=== PATIENT | female | born 1970 | race Caucasian/White ===

== ENCOUNTER 2021-01-12 11:13 | Emergency (ER) | payer OTHER, SELFPAY ==
[2021-01-12] VITALS (16 sets, daily range): BP systolic 110–151; BP diastolic 54–85; PULSE 61–88; RESP 15–28; TEMP 36.5–36.7; O2SAT 96–100
--- NOTE | ~2021-01-12 | XR_ITS ---
EXAMINATION: XR chest 1V portable INDICATION: Shortness of breath TECHNIQUE: Portable AP chest at 1140 hours COMPARISON: 11/23/2016 FINDINGS: The lungs are free of acute opacities. There is no pleural effusion or pneumothorax. The ca rdiomediastinal silhouette is normal. The visualized bones and soft tissues are unremarkable. IMPRESSION: 1. No acute cardiopulmonary abnormality. Reviewed, dictated and finalized at location A.
--- NOTE | 2021-01-12 11:20 | ECG_ITS ---
Measurements Intervals [place] Rate: 63 P: 54 MA: 125 QRS: 70 QRSD: 86 T: 59 QT: 413 QTc: 423 Interpretive Statements SINUS RHYTHM INCOMPLETE RIGHT BUNDLE BRANCH BLOCK BASELINE ARTIFACT- V4 BORDERLINE ECG Electronically Signed On 01-12-2021 15:15:35 CDT by Jay Marshall D.O.
--- NOTE | 2021-01-12 11:20 | ED.SOB ---
HPI - SOB/Dyspnea General Chief Complaint: Shortness of Breath/Dyspnea Stated Complaint: SOB, CP- covid positive Time Seen by Provider: 01/12/21 11:20 History of Present Illness HPI Narrative: 50 yo female w/ h/o asthma presents to the ED for SOB. Began feeling sick 4 days ago. Positive COVID test yesterday. SHe reports shortness of breath all the time. Additionally she has pleuritic chest pain, cough, intermittent fever and fatigue. Related Data Home Medications Medication Instructions Recorded Confirmed omeprazole 40 mg capsule,delayed 40 mg PO DAILY 05/29/20 release Allergies Allergy/AdvReac Type Severity Reaction Status Date / Time Sulfa (Sulfonamide Allergy Mild Unknown Verified 01/12/21 11:21 Antibiotics) trimethoprim Allergy Unknown HIVES, Verified 01/12/21 11:21 RASH,ITCHEY Review of Systems Review of Systems: All systems reviewed & are unremarkable except as noted in HPI and below Constitutional: Constitutional: Reports chills, Reports fatigue and Reports fever(s) Eyes: Eyes: Reports no additional eye complaints ENT: Reports sore throat Cardiovascular: Cardiovascular: Reports chest pain and Denies radiating jaw, neck or arm pain Respiratory: Respiratory: Reports cough and Reports dyspnea Gastrointestinal: Gastrointestinal: Denies abdominal pain, Denies diarrhea, Denies nausea and Denies vomiting Genitourinary: Genitourinary: Reports no additional female genitourinary complaints Musculoskeletal: Musculoskeletal: Reports no additional musculoskeletal complaints Neurologic: Reports system reviewed and no additional complaints, except as documented Psychiatric: Psychiatric: Reports no additional psychiatric complaints [facility] Past Medical History Medical History Asthma Family History Family History Sibling Family history of thyroid disease Hypertension Family history of hypothyroidism Patient's brother is Mother Family history of ulcerative colitis Acute myocardial infarction Father Family history of diabetes mellitus in first degree relative Acute myocardial infarction Other Diabetes mellitus Family history of alcoholism Family history of cardiovascular disease Social History Social History Smoking status: Never smoker Second hand tobacco smoke exposure: No Alcohol intake: former Substance use: never Gender identity (if verbalized by the patient): Female Exam Const: General: healthy appearing, no acute distress and alert Orientation/consciousness: patient oriented x3 HENMT: Head: normal to inspection Neck: Neck: normal visual inspection and no lymphadenopathy Chest: Chest palpation & inspection: tenderness sternum Resp: Effort & Inspection: normal respiratory effort Auscultation: clear to auscultation bilaterally, no rales, no rhonchi and no wheezes Cardio: Jugular venous distension: no JVD Rate: regular rate Rhythm: regular rhythm Heart sounds: no murmurs GI: Inspection: non-distended GI Palp: Yes Soft to palpation and No Tenderness to palpation present (GI) Skin: General skin exam: normal color Neuro: General: patient oriented x3, moves all extremities, no focal motor deficits and CN's II-XI intact bilaterally Speech: normal speech Extrem: General: normal to inspection and no edema Psych: Appearance: well kempt Affect: normal affect Course Vital Signs Vital signs: Vital Signs Temperature 36.5 C 01/12/21 11:16 Pulse Rate 69 01/12/21 11:16 Respiratory Rate 28 H 01/12/21 11:16 Blood Pressure 151/84 H 01/12/21 11:16 Pulse Oximetry 100 01/12/21 11:16 Temperature 36.7 C 01/12/21 12:52 Pulse Rate 79 01/12/21 13:31 Respiratory Rate 17 01/12/21 13:31 Blood Pressure 110/73 01/12/21 13:31 Pulse Oximetry 98 0
[2021-01-12] MEDS: DEXAMETHASONE SOD PHOS INJ 4 MG/ML VIAL 10 MG IV PUSH (11:37)
[2021-01-12] MEDS: KETOROLAC 30 MG/ML VIAL (*BKC) IV PUSH (11:38)
[2021-01-12] MEDS: ALBUTEROL SULFATE NEB 2.5 MG/0.5 ML INH 5 MG INHALATION (11:40)
[2021-01-12] MEDS: IPRATROPIUM BR 0.02% INH SOLN 0.5 MG/2.5 ML VIAL INHALATION (11:40)
[2021-01-12 11:49] LABS: Basophils Percent Auto 0.5 % (0.2-1.2); Eosinophils Absolute Auto 0.1 K/mm3 (0-0.3); Eosinophils Percent Auto 3.9 % (0-4.4); Hematocrit 32.5 % (37.0-47.0); Hemoglobin 9.7 g/dL (12.0-15.0); Lymphocytes Absolute Auto 1.01 K/mm3 (0.9-3.2); Lymphocytes Percent Auto 49.5 % (18.3-44.2); Mean Corpuscular HGB Conc 29.8 g/dl (32-36); Mean Corpuscular Hemoglobin 22.2 pg (26-34); Mean Corpuscular Volume 74.4 fl (80-100); Monocytes Absolute Auto 0.3 K/mm3 (0.1-0.6); Monocytes Percent Auto 12.3 % (2.6-8.5); Neutrophils Absolute Auto 0.7 K/mm3 (1.3-6.7); Neutrophils Percent Auto 33.8 % (45.5-73.1); Platelet Count Result 216 k/mm3 (150-375); Red Blood Count 4.37 M/mm3 (4.2-5.4); Red Cell Distribution Width 18.3 % (11.5-14.5)
[2021-01-12 12:02] LABS: Anion Gap 8 mmol/L (8-16); Blood Urea Nitrogen 14 mg/dL (7-17); Calcium 8.9 mg/dL (8.4-10.2); Carbon Dioxide 23 mmol/L (22-30); Chloride 109 mmol/L (98-107); Estimated CRCL calculation 77 ml/min; Estimated Glomerular Filt Rate > 60; Glucose 117 mg/dL (65-105); Sodium 140 mmol/L (137-145)
[2021-01-12 12:10] LABS: Hypochromasia 1+ (NORMAL); Platelet Estimate Adequate (Adequate)
[2021-01-12 12:11] LABS: Anisocytosis 2+ (NORMAL); Stomatocytes 1+ (NORMAL)
== END 2021-01-12 14:36 | disposition home or self-care (01) ==
PROVIDERS: Emergency Provider Emergency Medicine; PCP Internal Medicine
DX: U07.1 COVID-19 (principal); J45.909 Unspecified asthma, uncomplicated; I45.10 Unspecified right bundle-branch block
CPT/HCPCS: 36415; 71045; 80048; 85025; 93005; 94640; 96374; 96375; 99284; J1100; J1885

== ENCOUNTER 2022-08-01 10:37 | Outpatient (CLI) | payer OTHER, SELFPAY ==
--- NOTE | ~2022-08-01 | US_ITS ---
EXAMINATION: US soft tissue head and neck DATE: 08/01/2022 11:00 INDICATION: Localized swelling, mass and lump, neck. TECHNIQUE: Multiple grayscale and Doppler ultrasound images of the head and neck were obtained. COMPARISON: None FINDINGS: There is a normal lymph node in right neck in the patient's area of concern. IMPRESSION: 1. Normal lymph node in right neck in the patient's area of concern. Reviewed, dictated and finalized at location A.
== END 2022-08-01 10:38 | disposition home or self-care (01) ==
PROVIDERS: PCP Internal Medicine; Visit Provider Internal Medicine
DX: R22.1 Localized swelling, mass and lump, neck (principal)
CPT/HCPCS: 76536

== ENCOUNTER 2022-08-19 11:21 | Emergency (ER) | payer OTHER, SELFPAY ==
--- NOTE | ~2022-08-19 | US_ITS ---
EXAMINATION: US abdomen limited DATE: 08/19/2022 12:57 INDICATION: Right upper quadrant abdominal pain. TECHNIQUE: Multiple grayscale and Doppler ultrasound images of the abdomen were obtained. COMPARISON: Ultrasound 03/22/2018 FINDINGS: The pancreas is obscured by bowel gas. There is diffuse hepatic steatosis. There is normal flow in main portal vein. The gallbladder is normal in size. No gallstones or gallbladder wall thicke erick. There is no sonographic Jamil sign. The common duct is normal and measures 5 mm. IMPRESSION: 1. Diffuse hepatic steatosis. Reviewed, dictated and finalized at location A.
--- NOTE | ~2022-08-19 | CT_ITS ---
EXAMINATION: CT abdomen pelvis w con DATE: 08/19/2022 14:07 INDICATION: epigastric and RUQ pain TECHNIQUE: Computed tomography (CT) of the abdomen and pelvis was performed with 100 mL Omnipaque-350 intravenous contrast. Automated exposure control and iterative reconstruction technique were employe d. The dose-length product was 431.26 mGy-cm. COMPARISON: 03/16/2018. FINDINGS: Lower thorax: Large hiatal hernia. Bilateral breast augmentation. Stable benign pulmonary nodules. [place] bpleural groundglass opacities likely comminution of atelectasis and early senescent/interstitial rory nge. Liver: Normal. Biliary/Gallbladder: Gallbladder is normal. No bile duct dilation. Pancreas: No mass or duct dilation. Spleen: Normal. Adrenals:No mass. Kidneys: No mass, stone, or hydronephrosis. GI tract: Esophageal wall edema. No small or large bowel dilation. Appendix not visualized. Diverticu losis without diverticulitis. Mesentery/Peritoneum: No ascites, mass, or free air. Retroperitoneum: No mass. Atherosclerotic abdominal aortic and/or arterial calcifications. Pelvis: Bladder wall thickening and inflammation. Absent uterus. Soft Tissues: Soft tissues and body wall unremarkable. Bones: No acute osseous finding. IMPRESSION: Esophagitis. Large hiatal hernia. Possible cystitis. Reviewed, dictated and finalized at location K.
[2022-08-19 11:22] VITALS: BP 166/58; PULSE 78; RESP 16; TEMP 36.2; O2SAT 100
--- NOTE | 2022-08-19 11:27 | ECG_ITS ---
Measurements Intervals [place] Rate: 69 P: 8 MI: 113 QRS: 53 QRSD: 86 T: 22 QT: 405 QTc: 435 Interpretive Statements SINUS RHYTHM WITH SHORT MI INTERVAL INCOMPLETE RIGHT BUNDLE BRANCH BLOCK BORDERLINE ECG COMPARED TO ECG 01/12/2021 11:24:12 NO SIGNIFICANT CHANGES Electronically Signed On 08-19-2022 11:47:22 CDT by Jay Marshall D.O.
[2022-08-19 11:56] LABS: Alanine Aminotransferase 34 U/L (6-35); Albumin Level 4.7 g/dL (3.5-5.1); Alkaline Phosphatase 96 U/L (38-126); Anion Gap 10 mmol/L (8-16); Aspartate Amino Transferase 38 U/L (14-36); Bilirubin,Total 0.5 mg/dL (0.2-1.3); Blood Urea Nitrogen 11 mg/dL (7-17); Carbon Dioxide 22 mmol/L (22-30); Chloride 107 mmol/L (98-107); Estimated CRCL calculation 73 ml/min; Estimated Glomerular Filt Rate > 60; Glucose 108 mg/dL (65-110); Lipase 510 U/L (23-300); Potassium 4.1 mmol/L (3.4-5.0); Sodium 139 mmol/L (137-145)
[2022-08-19 12:17] VITALS: BP 149/89; PULSE 66; RESP 16; O2SAT 100
--- NOTE | 2022-08-19 12:38 | ED.GENADULT ---
HPI - General Adult General Chief complaint: Abdominal Pain Stated complaint: epigastric pain Time Seen by Provider: 08/19/22 12:18 History of Present Illness HPI narrative: 51-year-old female presenting the emergency department for evaluation of right upper quadrant epigastric pain that has been ongoing for the last few days. Patient does report history of hiatal hernia. Patient had follow-up with her primary care physician and was instructed to have evaluation in the emergency department. Patient states symptoms have been ongoing for approximately 1 week. Patient is associated nausea and epigastric spasms. Patient does still have her gallbladder Related Data Allergies Allergy/AdvReac Type Severity Reaction Status Date / Time Sulfa (Sulfonamide Allergy Mild Unknown Verified 08/19/22 12:18 Antibiotics) trimethoprim Allergy Unknown HIVES, Verified 08/19/22 12:18 RASH,ITCHEY latex Allergy Hives Verified 08/19/22 12:18 Review of Systems Review of Systems: CONSTITUTIONAL: Denies fever, chills, or sweats. EYES: Denies visual changes, redness, or discharge. ENT: Denies rhinorrhea, congestion, sore throat, or otalgia. CARDIOVASCULAR: Denies chest pain, palpitations, or edema. RESPIRATORY: Denies cough or dyspnea. GASTROINTESTINAL: See HPI GENITOURINARY: Denies dysuria or hematuria. SKIN: Denies rash or itching. MUSCULOSKELETAL: Denies back pain, joint pain, or myalgia. NEUROLOGIC: Denies headache, numbness, or weakness. PSYCHIATRIC: Denies anxiety or depression. [facility] Past Medical History Medical History (Reviewed 08/07/22 @ 10:17 by Елена Echols [facility]) Asthma Family History Family History Sibling Family history of thyroid disease Hypertension Family history of hypothyroidism Patient's brother is Mother Family history of ulcerative colitis Acute myocardial infarction Father Family history of diabetes mellitus in first degree relative Acute myocardial infarction Other Diabetes mellitus Family history of alcoholism Family history of cardiovascular disease Social History Social History Smoking status: Never smoker Second hand tobacco smoke exposure: No Alcohol intake: former Substance use: never Has the Lack of Transportation Kept You From Medical Appointments or From Getting Medications?: No Within the Past 12 Months, Were You Worried Whether Your Food Would Run Out Before You Got Money to Buy More?: Never True What is Your Housing Situation Today?: I Have Housing Are You Worried That in the Next 2 Months, You May Not Have Your Own Housing to Live In?: No Do You Have Trouble Paying Your Heating Or Electricity Bill?: No Do You Have Trouble Paying For Medicines?: No Are You Currently Unemployed and Looking for Work?: No Highest Level of Education Completed: Associate Degree Do You Have Trouble With Childcare or the Care of a Family Member?: No Gender identity (if verbalized by the patient): Female Exam Narrative: APPEARANCE: Well appearing, no pain, no distress, well-nourished. HEAD: normocephalic, atraumatic. EYES: PERRLA/EOMI, conjunctivae clear. NOSE: Normal no drainage NECK: Supple. No adenopathy, no masses. RESPIRATORY: Epigastric and right upper quadrant tenderness to palpation CARDIOVASCULAR: Regular rate and rhythm without murmurs rubs or gallops. ABDOMINAL: Soft, nontender, nondistended, normal bowel sounds MUSCULOSKELETAL: Moves all extremities. Strength/ROM intact, No edema, No calf tenderness. NEURO: Alert. Cranial nerves II through XII intact. Good gait. Good coordination SKIN: Warm, dry. Normal Color PSYCHIATRIC: Normal affect/mood. Course Course Emergency Course: Patient does feel improved with treatment. Ultrasound showed hepatic steatosis. CT abdomen pelvis showed evidence of a large hiatal hernia with no other abnorma
[2022-08-19 12:52] LABS: Basophils Absolute Auto 0.1 K/mm3 (0.0-0.1); Basophils Percent Auto 0.9 % (0.2-1.2); Eosinophils Absolute Auto 0.1 K/mm3 (0-0.3); Eosinophils Percent Auto 2.6 % (0-4.4); Hematocrit 28.5 % (37.0-47.0); Hemoglobin 8.3 g/dL (12.0-15.0); Immature Granulocyte Absolute 0.02 K/mm3 (0.00-0.031); Immature Granulocyte Percent A 0.4 % (0-0.5); Lymphocytes Absolute Auto 1.26 K/mm3 (0.9-3.2); Lymphocytes Percent Auto 23.5 % (18.3-44.2); Mean Corpuscular HGB Conc 29.1 g/dl (32-36); Mean Corpuscular Hemoglobin 23.9 pg (26-34); Mean Corpuscular Volume 82.1 fl (80-100); Mean Platelet Volume 10.6 fl (7.4-10.4); Monocytes Absolute Auto 0.4 K/mm3 (0.1-0.6); Monocytes Percent Auto 6.7 % (2.6-8.5); Neutrophils Absolute Auto 3.5 K/mm3 (1.3-6.7); Neutrophils Percent Auto 65.9 % (45.5-73.1); Platelet Count Result 223 k/mm3 (150-375); Red Blood Count 3.47 M/mm3 (4.2-5.4); Red Cell Distribution Width 15.9 % (11.5-14.5); White Blood Count 5.4 K/mm3 (4.5-10.0)
[2022-08-19] MEDS: BELLADONNA ALK/PHENOB ELIX 10 ML, MAG HYDROX/ALUMINUM HYD/SIMETH 30 ML, LIDOCAINE HCL 2... PO (12:55)
[2022-08-19 13:06] VITALS: PULSE 65; RESP 19; O2SAT 97
[2022-08-19 13:06] LABS: Anisocytosis 1+ (NORMAL); Hypochromasia 1+ (NORMAL); Large Platelets Present; Platelet Estimate Adequate (Adequate); Schistocytes None Seen (NORMAL)
[2022-08-19 13:10] LABS: Appearance Urine Clear (Clear); Bilirubin Urine 1+ (Negative); Blood Urine Negative (Negative); Color Urine Yellow (Yellow); Glucose Urine UA Negative (Negative); Ketones Urine Negative (Negative); Leukocyte Esterase Ur Negative LEU/UL (Negative); Nitrate Urine Negative (Negative); Protein Urine Negative (Negative); Specific Grav Ur 1.025 (1.001-1.035); Urobilinogen Urine 0.2 mg/dL (<2.0)
[2022-08-19 13:14] LABS: Mucus Urine Few /lpf; Squamous Epithelial Cell Urine Many /hpf (Few)
[2022-08-19 13:22] LABS: Add Urine Microscopic? YES
[2022-08-19] MEDS: HYDROmorphone HCL INJ (*CRX) 1 MG/ML SYR 0.5 MG IV PUSH (13:52)
[2022-08-19] MEDS: ONDANSETRON INJ 4 MG/2 ML VIAL IV PUSH (13:52)
--- NOTE | 2022-08-19 13:52 | PC.NURSE ---
Pt to CT scan via stretcher at this time.
[2022-08-19 14:24] VITALS: BP 132/86; PULSE 68; RESP 12; O2SAT 100
[2022-08-19 15:18] VITALS: BP 137/80; PULSE 72; RESP 14; O2SAT 97
== END 2022-08-19 15:30 | disposition home or self-care (01) ==
PROVIDERS: Emergency Provider Emergency Medicine; PCP Internal Medicine
DX: R10.11 Right upper quadrant pain (principal); J45.909 Unspecified asthma, uncomplicated; K76.0 Fatty (change of) liver, not elsewhere classified; K44.9 Diaphragmatic hernia without obstruction or gangrene
CPT/HCPCS: 36415; 74177; 76705; 80053; 81001; 83690; 85025; 87086; 93005; 96374; 96375; 99284; A9270; J1170; J2405; Q9967

== ENCOUNTER 2022-09-10 06:21 | Day surgery (SDC) | payer OTHER, SELFPAY ==
[2022-08-29 13:23] VITALS: BMI 27.1
[2022-08-29 14:07] VITALS: BMI 27.1
[2022-09-10] VITALS (9 sets, daily range): BP systolic 123–158; BP diastolic 76–98; PULSE 76–82; RESP 14–18; TEMP 36–36.7; O2SAT 97–100
--- NOTE | 2022-09-10 06:47 | WPDANESEPPF ---
Anes - Initial Pre Proc Eval Procedure: Operation Date: 09/10/22 08:15 Proposed Procedures p Open Incarcerated Ventral Hernia Repair with Mesh - Luis Enrique Blue DO Date/Time: 09/10/22 06:47 Surgeon: Luis Enrique Blue DO Pre Op Diagnosis: Incarcerated Ventral Hernia Patient Data Age: 51 Gender: F Height: 1.66 m Weight: 75 kg Allergies Allergy/AdvReac Type Severity Reaction Status Date / Time Sulfa (Sulfonamide Allergy Mild Hives Verified 08/29/22 13:55 Antibiotics) trimethoprim Allergy Unknown HIVES, Verified 08/29/22 13:55 RASH,ITCHEY latex Allergy Hives Verified 08/29/22 13:55 Home Medications Medication Instructions Recorded Confirmed Type albuterol sulfate 90 mcg/actuation 2 puff inhalation Q4-6H PRN 04/11/20 08/29/22 Rx aerosol inhaler (ProAir HFA) shortness of breath or wheezing #8.5 grams sodium,potassium,mag sulfates 17.5 See Rx Instructions PO .COMPLEX 08/12/22 08/29/22 Rx gram-3.13 gram-1.6 gram oral soln #354 mL (Suprep Bowel Prep Kit) omeprazole 40 mg capsule,delayed 40 mg PO DAILY #90 caps 08/15/22 08/29/22 Rx release sertraline 50 mg tablet 50 mg PO DAILY #90 tabs 08/15/22 08/29/22 Rx hydrocodone 5 mg-acetaminophen 325 1 tablet PO Q8H PRN pain #10 tabs 08/19/22 08/29/22 Rx mg tablet ondansetron 4 mg disintegrating 4 mg PO Q8H PRN nausea and 08/19/22 08/29/22 Rx tablet vomiting #14 tabs tramadol 50 mg tablet 50 mg PO Q6H PRN pain #30 tabs 08/26/22 08/29/22 Rx Patient hx anesthesia problems: none Family hx anesthesia problems: none Results Review: All pre-operative results and documents have been reviewed as part of the pre-operative evaluation. [facility] Past Medical History Medical History Asthma Surgical History Surgical History H/O laparoscopy H/O shoulder surgery H/O: hysterectomy Hx of appendectomy Hx of breast implants, bilateral Family History Family History Sibling Family history of thyroid disease Hypertension Family history of hypothyroidism Patient's brother is Mother Family history of ulcerative colitis Acute myocardial infarction Diabetes mellitus Father Family history of diabetes mellitus in first degree relative Acute myocardial infarction Diabetes mellitus Other Family history of alcoholism Family history of cardiovascular disease Social History Social History Smoking status: Never smoker Second hand tobacco smoke exposure: No Alcohol intake: current Substance use: never Lack of Transportation: No Lack of Food: Never True Current Housing: I Have Housing Concerned About Future Housing: No Difficulty Paying Gas/Electric Bills: No Difficulty Paying for Meds: No Currently Unemployed: No Education: Associate Degree Difficulty w/ Childcare or Family Care: No Additional occupation/education comments: Law Enforcement Gender identity (if verbalized by the patient): Female Anes - Eval Final PreProcedure Day of Procedure 09/10/22 06:47 Patient weight: obese Heart: regular rate and rhythm Lungs: clear to auscultation Airway: Mallampati scale class II Neurological: alert and oriented Last oral intake: >/= 8 hours ASA classification: II Emergent: no Anesthetic plan: proceed Anesthesia type and monitoring: general ETT and standard monitoring Results Review: All pre-operative results and documents have been reviewed as part of the pre-operative evaluation. Informed Consent: The patient's anesthetic plan and its attendant risks and benefits were discussed with the patient/family/POA. Questions were solicited and answers provided to the satisfaction of the patient/family/POA.
[2022-09-10] MEDS: ACETAMINOPHEN 500 MG TABLET 1000 MG PO (07:05)
[2022-09-10] MEDS: LACTATED RINGERS 1,000 ML 30 ML IV CONT (07:32)
--- NOTE | 2022-09-10 08:06 | WPDHPUPDATE1 ---
History and Physical Update Update Date/Time: 09/10/22 08:06 History and Physical has been reviewed, including an updated exam of the patient. There are NO changes in the patient's condition. Risks, benefits, and alternatives have been discussed and questions answered. Patient agrees to proceed with procedure.
[2022-09-10] MEDS: ceFAZolin SODIUM 2 GM/20 ML SW SYRINGE IV PUSH (08:26)
[2022-09-10] MEDS: BUPIVACAINE/EPINEPHRINE 0.5% 10 ML VIAL 20 ML INFILTRATE (08:46)
--- NOTE | 2022-09-10 09:16 | W.PM.PROC2 ---
Procedure Note - Detailed Date of Procedure 09/10/22 Pre-op Diagnosis Incarcerated Ventral Hernia Post-op Diagnosis Same Procedure Performed Open incarcerated ventral hernia repair with 6.[address] hernia patch Surgeon Luis Enrique Blue, DO Anesthesia General and Local (0.5% bupivacaine with epinephrine) Indications this is a 51-year-old woman who presented with epigastric pain that started on 08/19/2022. She has been to 2 different ERs complaining of worsening constant pain with nausea. She had a CT at [facility] which showed a large hiatal hernia and esophagitis as well as an epigastric abdominal hernia. She then went to [facility] Emergency Department and again a CT was obtained which was essentially unchanged. She was not having significantly worse pain with eating and was frequently having pain even 1st thing in the morning. She had significant tenderness in the upper midline abdominal region where the hernia was. An incarcerated ventral hernia was identified on exam. Discussions were made with the patient about treatment options and decision was made to proceed with open incarcerated ventral hernia repair with possible mesh. Findings Open incarcerated ventral hernia repair was performed. The patient was found to have a ventral hernia in the upper midline about 5 cm inferior to the xiphoid that was incarcerated with fat. The hernia sac was excised and sent to the lab for pathology. The hernia defect measured about 2 cm. This was repaired using a 6.[address] hernia patch. Description of Procedure Procedure as well as risks, benefits, and alternatives were discussed with the patient. Written consent was obtained and placed in chart prior to procedure. Patient was brought back to surgical suite. She was placed supine on operating table. She was then intubated by Anesthesia Department. Her abdomen was prepped and draped in sterile fashion using chlorhexidine prep. 0.5% bupivacaine with epinephrine was infiltrated locally around the operative area. A 5 cm transverse incision was made in the upper abdomen using a 15 blade scalpel. Electrocautery was used for hemostasis and for dissection down through the subcutaneous fat. Hernia sac was encountered and this was carefully freed up from surrounding subcutaneous fat using electrocautery. The hernia sac was freed up all the way down to the level of the fascia, and then it was transected using electrocautery. The hernia sac was sent to the lab for pathology. The hernia defect was then measured. This was measuring approximately 20 mm. The decision was made to use a 6.[address] hernia patch. The peritoneum was cleared under the fascia circumferentially around the hernia using blunt dissection and electrocautery. Once a wide enough pocket was created for the mesh, the mesh was then placed within this preperitoneal pocket and laid out flat centered on the hernia defect. The mesh appeared to be sitting in proper position. The edges of the mesh were secured to the abdominal wall with the fascial closure using 0 Ethibond [id number] sutures. A total of 3 sutures were placed transversely to close the hernia. The repair was inspected and appeared secure. 0.5% bupivacaine with epinephrine was infiltrated around the fascia and subcutaneous space. The umbilical stalk was then reapproximated to the fascia using a 3 0 Vicryl simple interrupted suture. The deep dermis was reapproximated using 3 0 Vicryl simple interrupted sutures, and then the skin was approximated using 4 Monocryl running subcuticular suture. Exofin glue was then applied on top. The patient was then awakened from anesthesia, extubated, and transferred to recovery. Implants 6.[address] hernia patch Estimated Blood Loss 5 Pathology Yes ( hernia sac) Complications No immediate complications Condition Stable Disposition Same day [facility] Billing Surgery - Charge Forward: Surgery Billing
[2022-09-10] MEDS: fentaNYL CITRATE INJ (*CRX) 100 MCG/2 ML VIAL 25 MCG IV PUSH ×3 (09:57→10:31)
--- NOTE | 2022-09-10 10:13 | SUR.PHASEI ---
PT AWAKE AND ALERT. TALKATIVE. STATES PAIN IMPROVED /. STATES SHE IS READY FOR PO DRINK.
[2022-09-10] MEDS: oxyCODONE HCL (*CRX) 2.5 MG TAB IR PO (10:43)
--- NOTE | 2022-09-10 10:56 | SUR.PHASEII ---
Pt asked pain level after receiving 25mcg of fentanyl ivp- stated that the discomfort comes in spasms ranging from 4 to 12- patient at this time is sleeping comfortable on stretcher- no signs of distress on face
--- NOTE | 2022-09-10 13:20 | WPDANESPN ---
Anes - Prog Note Post-Op Date/Time: 09/10/22 13:20 Cardiovascular status: normal Respiratory status: normal Airway patency: baseline Mental status: baseline Post-Op hydration status: normal Vital Signs: Last Vital Signs Temp 36.0 C L 09/10/22 09:24 Pulse 80 09/10/22 11:04 Resp 15 09/10/22 11:04 BP 141/93 H 09/10/22 11:04 Pulse Ox 97 09/10/22 10:05 O2 Del Method Room Air 09/10/22 10:05 O2 Flow Rate 6 09/10/22 09:35 Pain Score (VAS): 2 I/O: Intake & Output 09/09/22 09/10/22 09/10/22 23:59 07:59 15:59 Intake Total 150 Balance 150 Post-procedural complaints: none Patient Feedback: Patient satisfied with anesthetic care. Other Findings: Patient vital signs back to baseline. Patient denies nausea and vomiting. Patient's pain under control. Patient OK for discharge.
== END 2022-09-10 11:28 | disposition home or self-care (01) ==
PROVIDERS: Visit Provider Surgery
PROC: 0WQF0ZZ Repair Abdominal Wall, Open Approach (ICD-10-PCS; CPT 49561; principal; 2022-09-10 08:15)
DX: K43.6 Other and unspecified ventral hernia with obstruction, without gangrene (principal)
CPT/HCPCS: 49561; 49568

== ENCOUNTER 2022-09-10 08:00 | Outpatient (NON) | payer OTHER, SELFPAY | END 2022-09-10 08:01 | disposition home or self-care (01) | LOC: ANHLAB 09-15 08:16 | PROVIDERS: Visit Provider Surgery | DX: K43.6 Other and unspecified ventral hernia with obstruction, without gangrene (principal) | CPT/HCPCS: 88302 ==

== ENCOUNTER 2022-10-06 07:00 | Outpatient (NON) | payer OTHER, SELFPAY | END 2022-10-06 07:01 | disposition home or self-care (01) | PROVIDERS: Visit Provider Internal Medicine Gastroenterology | DX: R10.9 Unspecified abdominal pain (principal) | CPT/HCPCS: 88305 ==

== ENCOUNTER 2022-10-06 08:24 | Day surgery (SDC) | payer OTHER, SELFPAY ==
[2022-10-06 09:23] VITALS: BP 144/78; PULSE 72; RESP 16; TEMP 36.8; O2SAT 99; BMI 28.0
--- NOTE | 2022-10-06 09:33 | WPDANESEPPF ---
Anes - Initial Pre Proc Eval Procedure: Operation Date: 10/06/22 10:30 Proposed Procedures p Esophagogastroduodenoscopy - Luis Freeman MD s Diagnostic Colonoscopy - Luis Freeman MD Date/Time: 10/06/22 09:33 Surgeon: Luis Freeman MD Pre Op Diagnosis: Iron Deficient Anemia Patient Data Age: 51 Gender: F Height: 1.65 m Weight: 75 kg Last Vital Signs Temp 36.8 C 10/06/22 09:23 Pulse 72 10/06/22 09:23 Resp 16 10/06/22 09:23 BP 144/78 H 10/06/22 09:23 Pulse Ox 99 10/06/22 09:23 O2 Del Method Room Air 10/06/22 09:23 Allergies Allergy/AdvReac Type Severity Reaction Status Date / Time Sulfa (Sulfonamide Allergy Mild Hives Verified 10/06/22 09:29 Antibiotics) trimethoprim Allergy Unknown HIVES, Verified 10/06/22 09:29 RASH,ITCHEY latex Allergy Hives Verified 10/06/22 09:29 Home Medications Medication Instructions Recorded Confirmed Type albuterol sulfate 90 mcg/actuation 2 puff inhalation Q4-6H PRN 04/11/20 09/26/22 Rx aerosol inhaler (ProAir HFA) shortness of breath or wheezing #8.5 grams sodium,potassium,mag sulfates 17.5 See Rx Instructions PO .COMPLEX 08/12/22 09/26/22 Rx gram-3.13 gram-1.6 gram oral soln #354 mL (Suprep Bowel Prep Kit) omeprazole 40 mg capsule,delayed 40 mg PO DAILY #90 caps 08/15/22 09/26/22 Rx release sertraline 50 mg tablet 50 mg PO DAILY #90 tabs 08/15/22 09/26/22 Rx ondansetron 4 mg disintegrating 4 mg PO Q8H PRN nausea and 08/19/22 09/26/22 Rx tablet vomiting #14 tabs tramadol 50 mg tablet 50 mg PO Q12H PRN pain #30 tabs 09/19/22 09/26/22 Rx Patient hx anesthesia problems: none Family hx anesthesia problems: none Results Review: All pre-operative results and documents have been reviewed as part of the pre-operative evaluation. [facility] Past Medical History Medical History Asthma Surgical History Surgical History H/O laparoscopy H/O shoulder surgery H/O: hysterectomy History of incisional hernia repair Open ventral incisional hernia repair w/ mesh on 09/10/22. Hx of appendectomy Hx of breast implants, bilateral Family History Family History Sibling Family history of thyroid disease Hypertension Family history of hypothyroidism Patient's brother is Mother Family history of ulcerative colitis Acute myocardial infarction Diabetes mellitus Father Family history of diabetes mellitus in first degree relative Acute myocardial infarction Diabetes mellitus Other Family history of alcoholism Family history of cardiovascular disease Social History Social History Smoking status: Never smoker Second hand tobacco smoke exposure: No Alcohol intake: current Substance use: never Substance use type: does not use Lack of Transportation: No Lack of Food: Never True Current Housing: I Have Housing Concerned About Future Housing: No Difficulty Paying Gas/Electric Bills: No Difficulty Paying for Meds: No Currently Unemployed: No Education: Associate Degree Difficulty w/ Childcare or Family Care: No Living arrangements: 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
[2022-10-06] MEDS: LACTATED RINGERS 1,000 ML 150 ML IV CONT (10:19)
--- NOTE | 2022-10-06 10:40 | PM.HPGS ---
History of Present Illness History of Present Illness Consent: Risks, benefits, and alternatives have been discussed and questions answered. Patient agrees to proceed with procedure. Chief complaint: Iron Deficient Anemia Narrative: Georgina Cardenas is a 51 year old female Referred for colonoscopy an EGD. Patient reports that she was found to have iron deficiency anemia on routine exam performed at time of ER visit. Patient was scheduled for elective colonoscopy an EGD to evaluate anemia. She denies any obvious blood loss. She has not had stool hemoccults performed. She does have a ventral hernia which became incarcerated underwent surgical therapy under the direction of Dr. Nunez. Patient subsequently had her dog jumped on her abdomen she continues to have abdominal pain is there is concerned over recurrent herniation. Patient was told many years ago she had a hiatal hernia. She does have heartburn well controlled with omeprazole 40mg p.o. daily. Patient referred for both colonoscopy an EGD. Review of Systems Review of Systems: Review of systems noncontributory. [facility], [facility] Past Medical History Medical History Asthma Surgical History Surgical History H/O laparoscopy H/O shoulder surgery H/O: hysterectomy History of incisional hernia repair Open ventral incisional hernia repair w/ mesh on 09/10/22. Hx of appendectomy Hx of breast implants, bilateral Family History Family History Sibling Family history of thyroid disease Hypertension Family history of hypothyroidism Patient's brother is Mother Family history of ulcerative colitis Acute myocardial infarction Diabetes mellitus Father Family history of diabetes mellitus in first degree relative Acute myocardial infarction Diabetes mellitus Other Family history of alcoholism Family history of cardiovascular disease Social History Social History Smoking status: Never smoker Second hand tobacco smoke exposure: No Alcohol intake: current Substance use: never Substance use type: does not use Lack of Transportation: No Lack of Food: Never True Current Housing: I Have Housing Concerned About Future Housing: No Difficulty Paying Gas/Electric Bills: No Difficulty Paying for Meds: No Currently Unemployed: No Education: Associate Degree Difficulty w/ Childcare or Family Care: No Living arrangements: with 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 Gender identity (if verbalized by the patient): Female Spiritual care concerns: No Meds Home Medications and Allergies Home Medications Medication Instructions Recorded Confirmed Type albuterol sulfate 90 mcg/actuation 2 puff inhalation Q4-6H PRN 04/11/20 09/26/22 Rx aerosol inhaler (ProAir HFA) shortness of breath or wheezing #8.5 grams sodium,potassium,mag sulfates 17.5 See Rx Instructions PO .COMPLEX 08/12/22 09/26/22 Rx gram-3.13 gram-1.6 gram oral soln #354 mL (Suprep Bowel Prep Kit) omeprazole 40 mg capsule,delayed 40 mg PO DAILY #90 caps 08/15/22 09/26/22 Rx release sertraline 50 mg tablet 50 mg PO DAILY #90 tabs 08/15/22 09/26/22 Rx ondansetron 4 mg disintegrating 4 mg PO Q8H PRN nausea and 08/19/22 09/26/22 Rx tablet vomiting #14 tabs tramadol 50 mg tablet 50 mg PO Q12H PRN pain #30 tabs 09/19/22 09/26/22 Rx Allergies Allergy/AdvReac Type Severity Reaction Status Date / Time Sulfa (Sulfonamide Allergy Mild Hives Verified 10/06/22 09:29 Antibiotics) trimethoprim Allergy Unknown HIVES, Verified 10/06/22 09:29 RASH,ITCHEY latex Allergy Hives Verified 10/06/22 09:29 Vital Signs Vital Signs - 24 hr 10/06/22 09:23 Temperature 98.3 F Pulse Rate 72 Respiratory Ra
[2022-10-06 11:10] VITALS: BP 124/86; PULSE 70; RESP 16; O2SAT 99
[2022-10-06 11:20] VITALS: BP 135/55; PULSE 65; RESP 16; O2SAT 100
[2022-10-06 11:30] VITALS: BP 147/78; PULSE 59; RESP 18; O2SAT 98
--- NOTE | 2022-10-06 11:47 | WPDANESPN ---
Anes - Prog Note Post-Op Date/Time: 10/06/22 11:47 Cardiovascular status: normal Respiratory status: normal Airway patency: baseline Mental status: baseline Post-Op hydration status: normal Vital Signs: Last Vital Signs Temp 36.8 C 10/06/22 09:23 Pulse 59 L 10/06/22 11:30 Resp 18 10/06/22 11:30 BP 147/78 H 10/06/22 11:30 Pulse Ox 98 10/06/22 11:30 O2 Del Method Room Air 10/06/22 11:30 Pain Score (VAS): 0/10 I/O: Intake & Output 10/05/22 10/06/22 10/06/22 23:59 07:59 15:59 Intake Total 500 Balance 500 Patient Feedback: Patient satisfied with anesthetic care.
== END 2022-10-06 11:48 | disposition home or self-care (01) ==
PROVIDERS: PCP Internal Medicine; Visit Provider Internal Medicine Gastroenterology
PROC: 0DJ08ZZ Inspection of Upper Intestinal Tract, Via Natural or Artificial Opening Endoscopic (ICD-10-PCS; CPT 43235; principal; 2022-10-06 10:30)
PROC: 0DJD8ZZ Inspection of Lower Intestinal Tract, Via Natural or Artificial Opening Endoscopic (ICD-10-PCS; CPT 45378; 2022-10-06 10:30)
DX: K21.9 Gastro-esophageal reflux disease without esophagitis (principal)
CPT/HCPCS: 43239

== ENCOUNTER → 2022-10-30 13:32 | Outpatient (CLI) | payer OTHER, SELFPAY ==
--- NOTE | ~2022-10-30 | CT_ITS ---
EXAMINATION: CT abdomen wo con DATE: 10/30/2022 13:47 INDICATION: Follow-up of ventral hernia TECHNIQUE: Computed tomography (CT) of the abdomen was performed without intravenous contrast. Automa olaf exposure control and iterative reconstruction technique were employed. Exam dose: 538.03 mGy-cm total exam DLP. COMPARISON: 08/19/2022 CT abdomen pelvis FINDINGS: Small focal area of infiltrate or atelectasis in the posterior medial right lower lobe. The lung bases are otherwise clear of infiltrate or consolidation. Probable small calcified pulmonary granulomas at the lung bases. Normal heart size. No pericardial or pleural effusion. Status post bilateral augmentation mammoplasty. Large sliding hiatal hernia. The liver, gallbladder, bile ducts, spleen, pancreas, pancreatic duct and adrenal glands and kidneys are unremarkable on this limited noncontrast examination. No urinary tract calculus or hydroureterone phrosis is evident. Normal caliber and minimal calcification of the abdominal aorta and iliac arteries. No abdominal aort ic aneurysm. No intraperitoneal or retroperitoneal mass lesion or lymphadenopathy. There are scattered diverticula of the descending colon; no CT evidence of diverticulitis. There is evidence of successful mesh repair of the upper anterior abdominal wall hernia since 08/19/20 22. Small fat-containing umbilical hernia. No suspicious osteolytic or osteoblastic lesions. IMPRESSION: Successful surgical mesh repair of upper ventral abdominal wall hernia Diverticulosis of left colon; no evidence of diverticulitis Large sliding hiatal hernia Status post bilateral augmentation mammoplasty Reviewed, dictated and finalized at [facility] Reviewed, dictated and finalized at [facility]. RVISOR REFINING IMPRESSION: Successful surgical mesh repair of upper ventral abdominal wall he rnia Diverticulosis of left colon; no evidence of diverticulitis Large sliding hiatal hernia Status post bilateral augmentation mammoplasty
== END ==
PROVIDERS: PCP Internal Medicine; Visit Provider Surgery
DX: K43.6 Other and unspecified ventral hernia with obstruction, without gangrene (principal); K57.30 Diverticulosis of large intestine without perforation or abscess without bleeding; K44.9 Diaphragmatic hernia without obstruction or gangrene; Z98.890 Other specified postprocedural states
CPT/HCPCS: 74150

== ENCOUNTER → 2022-12-10 08:13 | Outpatient (CLI) | payer OTHER, SELFPAY ==
--- NOTE | ~2022-12-10 | MMUS_ITS ---
EXAMINATION: MM diag samantha implant BI w brennan, US breast BI complete HISTORY: Right breast lump TECHNIQUE: ML, MLO and CC implant displaced 3-D tomosynthesis images of both breasts were performed a nd synthetic 2-D images were generated. Bilateral implant ML, MLO and CC views. CAD analysis was subm itted and interpreted. High resolution complete bilateral breast ultrasound examination including all 4 quadrants and subareolar areas was performed. COMPARISON: 06/07/2018 bilateral diagnostic mammography and bilateral complete breast ultrasound exami nation 05/21/2018 bilateral screening mammogram BREAST PARENCHYMAL COMPOSITION: The breasts are heterogeneously dense, which may obscure small masses . FINDINGS: MAMMOGRAPHIC FINDINGS: Status post bilateral augmentation mammoplasty. No suspicious mass or architectural distortion, malig nant calcification, skin thickening or retraction or significant new or developing density is detecte d. ULTRASOUND: No suspicious mass or shadowing of either breast is detected. No cyst is identified. No other signifi cant sonographic finding. IMPRESSION: 1. No mammographic evidence of malignancy 2. Routine annual mammographic screening is recommended BI-RADS Category 1: Negative Reviewed, dictated and finalized at [facility]. ICAL PSYCHOLOGIST LICENSED IMPRESSION: 1. No mammographic evidence of malignancy 2. Routine annual mammographic screening is recommended BI-RADS Category 1: Negative
== END ==
PROVIDERS: PCP Internal Medicine; Visit Provider Obstetrics & Gynecology
DX: N63.10 Unspecified lump in the right breast, unspecified quadrant (principal)
CPT/HCPCS: 76641; 77062; 77066; G0279

== ENCOUNTER 2023-03-06 13:12 | Outpatient (CLI) | payer OTHER, SELFPAY ==
--- NOTE | ~2023-03-06 | XR_ITS ---
EXAMINATION: XR chest 2V DATE: 03/06/2023 13:22 INDICATION: Cough. TECHNIQUE: Frontal and lateral views of the chest were obtained. COMPARISON: Chest single view 01/12/2021, CT abdomen 10/30/22 FINDINGS: There is no pneumonia, pleural effusion, or pneumothorax. The heart size is normal. There i s a moderate-sized hiatal hernia. IMPRESSION: 1. Moderate-sized hiatal hernia. Reviewed, dictated and finalized at [facility].
== END 2023-03-06 13:13 | disposition home or self-care (01) ==
LOC: ANHIMG 13:14
PROVIDERS: PCP Internal Medicine; Visit Provider Internal Medicine
DX: R05.9 Cough, unspecified (principal); K44.9 Diaphragmatic hernia without obstruction or gangrene
CPT/HCPCS: 71046

== ENCOUNTER 2023-03-18 16:29 | Outpatient (CLI) | payer OTHER, SELFPAY ==
--- NOTE | ~2023-03-18 | CT_ITS ---
CT Scan of the Chest without Contrast: Clinical Indication: Hiatal hernia, dysphasia Technique: Contiguous sections were acquired throughout the chest without intravenous contrast. Dose reduction technique was used on this scan by utilizing automated exposure control and iterative recon struction technique. The dose-length product (DLP) was 210.19 mGy-cm. Findings: There is no evidence of any significant mediastinal, hilar or axillary lymphadenopathy. No aortic ane urysm. Large hiatal hernia is present, containing the gastric fundus and upper gastric body. There is no evidence of pleural or pericardial effusion. The lungs are clear. No pulmonary nodules or infiltrates are noted. Images through the upper abdomen reveal no other abnormalities. Impression: Large hiatal hernia, as detailed above. Reviewed, dictated and finalized at location . Impression: Large hiatal hernia, as detailed above.
== END 2023-03-18 16:30 | disposition home or self-care (01) ==
PROVIDERS: PCP Internal Medicine; Visit Provider Internal Medicine
DX: K44.9 Diaphragmatic hernia without obstruction or gangrene (principal); R13.10 Dysphagia, unspecified
CPT/HCPCS: 71250

== ENCOUNTER 2023-03-26 08:40 | Day surgery (SDC) | payer OTHER, SELFPAY ==
[2023-03-18 13:50] VITALS: BMI 26.6
--- NOTE | 2023-03-25 11:57 | WPDANESEPPF ---
Anes - Initial Pre Proc Eval Procedure: Operation Date: 03/26/23 10:30 Proposed Procedures p Esophagogastroduodenoscopy - Luis Freeman MD <Jan José MD - Last Filed: 03/25/23 11:58> Date/Time: 03/25/23 11:57 <Jan José MD - Last Filed: 03/25/23 11:58> Surgeon: Luis Freeman MD <Jan José MD - Last Filed: 03/25/23 11:58> Pre Op Diagnosis: Chronic Cough,Diaphragmatic Hernia w/o Obstruction <Jan José MD - Last Filed: 03/25/23 11:58> Patient Data Age: 52 Gender: F Height: 1.68 m Weight: 75 kg <Jan José MD - Last Filed: 03/25/23 11:58> Allergies Allergy/AdvReac Type Severity Reaction Status Date / Time Sulfa (Sulfonamide Allergy Mild Hives Verified 03/26/23 09:25 Antibiotics) trimethoprim Allergy Unknown HIVES, Verified 03/26/23 09:25 RASH,ITCHEY latex Allergy Hives Verified 03/26/23 09:25 <Jan José MD - Last Filed: 03/25/23 11:58> Home Medications Medication Instructions Recorded Confirmed Type omeprazole 40 mg capsule,delayed 40 mg PO DAILY #90 caps 02/18/23 03/26/23 Rx release sertraline 50 mg tablet 50 mg PO DAILY #90 tabs 02/18/23 03/26/23 Rx albuterol sulfate 90 mcg/actuation 2 puff inhalation Q4-6H PRN 03/18/23 03/26/23 Rx aerosol inhaler (ProAir HFA) shortness of breath or wheezing #8.5 grams fluticasone 250 mcg-salmeterol 50 1 inh inhalation BID #60 ea 03/18/23 03/26/23 Rx mcg/dose blistr powdr for inhalation (Advair Diskus) <Jan José MD - Last Filed: 03/25/23 11:58> Patient hx anesthesia problems: none <Matt Briceño MD - Last Filed: 03/26/23 09:43> Family hx anesthesia problems: none <Matt Briceño MD - Last Filed: 03/26/23 09:43> Results Review: All pre-operative results and documents have been reviewed as part of the pre-operative evaluation. <Jan José MD - Last Filed: 03/25/23 11:58> [facility] Past Medical History Medical History: Medical History Anemia Asthma Overweight (BMI 25.0-29.9) Paraesophageal hernia <Jan José MD - Last Filed: 03/25/23 11:58> Surgical History Surgical History: Surgical History H/O laparoscopy H/O shoulder surgery H/O: hysterectomy History of incisional hernia repair Open ventral incisional hernia repair w/ mesh on 09/10/22. Hx of appendectomy Hx of breast implants, bilateral <Jan José MD - Last Filed: 03/25/23 11:58> Family History Family History: Family History Sibling Family history of thyroid disease Hypertension Family history of hypothyroidism Patient's brother is Mother Family history of ulcerative colitis Acute myocardial infarction Diabetes mellitus Father Family history of diabetes mellitus in first degree relative Acute myocardial infarction Diabetes mellitus Other Family history of alcoholism Family history of cardiovascular disease <Jan José MD - Last Filed: 03/25/23 11:58> Social History Social History: Social History Smoking status: Never smoker Second hand tobacco smoke exposure: No Alcohol intake: current Alcohol use details: daily Substance use: never Substance use type: does not use Lack of Transportation: No Lack of Food: Never True Current Housing: I Have Housing Concerned About Future Housing: No Difficulty Paying Gas/Electric Bills: No Difficulty Paying for Meds: No Currently Unemployed: No Education: Associate Degree Difficulty w/ Childcare or Family Care: No Living arrangements: with family 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
[2023-03-26 09:27] VITALS: BP 141/78; PULSE 68; RESP 16; TEMP 36.6; O2SAT 100
[2023-03-26] MEDS: LACTATED RINGERS 1,000 ML 150 ML IV CONT (09:41)
--- NOTE | 2023-03-26 09:42 | WPDANESEPPF ---
Anes - Initial Pre Proc Eval Procedure: Operation Date: 03/26/23 10:30 Proposed Procedures p Esophagogastroduodenoscopy - Luis Freeman MD Date/Time: 03/26/23 09:42 Surgeon: Luis Freeman MD Pre Op Diagnosis: Chronic Cough,Diaphragmatic Hernia w/o Obstruction Patient Data Age: 52 Gender: F Height: 1.68 m Weight: 75.1 kg Last Vital Signs Temp 36.6 C 03/26/23 09:27 Pulse 68 03/26/23 09:27 Resp 16 03/26/23 09:27 BP 141/78 H 03/26/23 09:27 Pulse Ox 100 03/26/23 09:27 O2 Del Method Room Air 03/26/23 09:27 Allergies Allergy/AdvReac Type Severity Reaction Status Date / Time Sulfa (Sulfonamide Allergy Mild Hives Verified 03/26/23 09:25 Antibiotics) trimethoprim Allergy Unknown HIVES, Verified 03/26/23 09:25 RASH,ITCHEY latex Allergy Hives Verified 03/26/23 09:25 Home Medications Medication Instructions Recorded Confirmed Type omeprazole 40 mg capsule,delayed 40 mg PO DAILY #90 caps 02/18/23 03/26/23 Rx release sertraline 50 mg tablet 50 mg PO DAILY #90 tabs 02/18/23 03/26/23 Rx albuterol sulfate 90 mcg/actuation 2 puff inhalation Q4-6H PRN 03/18/23 03/26/23 Rx aerosol inhaler (ProAir HFA) shortness of breath or wheezing #8.5 grams fluticasone 250 mcg-salmeterol 50 1 inh inhalation BID #60 ea 03/18/23 03/26/23 Rx mcg/dose blistr powdr for inhalation (Advair Diskus) Patient hx anesthesia problems: none Family hx anesthesia problems: none Results Review: All pre-operative results and documents have been reviewed as part of the pre-operative evaluation. [facility] Past Medical History Medical History Anemia Asthma Overweight (BMI 25.0-29.9) Paraesophageal hernia Surgical History Surgical History H/O laparoscopy H/O shoulder surgery H/O: hysterectomy History of incisional hernia repair Open ventral incisional hernia repair w/ mesh on 09/10/22. Hx of appendectomy Hx of breast implants, bilateral Family History Family History Sibling Family history of thyroid disease Hypertension Family history of hypothyroidism Patient's brother is Mother Family history of ulcerative colitis Acute myocardial infarction Diabetes mellitus Father Family history of diabetes mellitus in first degree relative Acute myocardial infarction Diabetes mellitus Other Family history of alcoholism Family history of cardiovascular disease Social History Social History Smoking status: Never smoker Second hand tobacco smoke exposure: No Alcohol intake: current Alcohol use details: daily Substance use: never Substance use type: does not use Lack of Transportation: No Lack of Food: Never True Current Housing: I Have Housing Concerned About Future Housing: No Difficulty Paying Gas/Electric Bills: No Difficulty Paying for Meds: No Currently Unemployed: No Education: Associate Degree Difficulty w/ Childcare or Family Care: No Living arrangements: with family 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 Informed Consent: The patient's anesthetic plan and its attendan
--- NOTE | 2023-03-26 09:54 | PM.HPGS ---
History of Present Illness History of Present Illness Consent: Risks, benefits, and alternatives have been discussed and questions answered. Patient agrees to proceed with procedure. Chief complaint: Chronic Cough,Diaphragmatic Hernia w/o Obstruction Narrative: Georgina Cardenas is a 52 year old female Presents for EGD. Patient reports a distant history of heartburn. She has been maintained on omeprazole 40mg p.o. daily and has not had heartburn for years. Patient reports that she has a chronic cough. Occasionally will vomit after coughing. Recent chest x-ray has suggested hiatal hernia and for this reason EGD is now reuested. Patient denies any dysphagia or weight loss. She has had no bleeding. She does notice occasional emesis. As stated EGD is requested will be performed. Review of Systems Review of Systems: Review of systems noncontributory. [facility] Past Medical History Medical History Anemia Asthma Overweight (BMI 25.0-29.9) Paraesophageal hernia Surgical History Surgical History H/O laparoscopy H/O shoulder surgery H/O: hysterectomy History of incisional hernia repair Open ventral incisional hernia repair w/ mesh on 09/10/22. Hx of appendectomy Hx of breast implants, bilateral Family History Family History Sibling Family history of thyroid disease Hypertension Family history of hypothyroidism Patient's brother is Mother Family history of ulcerative colitis Acute myocardial infarction Diabetes mellitus Father Family history of diabetes mellitus in first degree relative Acute myocardial infarction Diabetes mellitus Other Family history of alcoholism Family history of cardiovascular disease Social History Social History Smoking status: Never smoker Second hand tobacco smoke exposure: No Alcohol intake: current Alcohol use details: daily Substance use: never Substance use type: does not use Lack of Transportation: No Lack of Food: Never True Current Housing: I Have Housing Concerned About Future Housing: No Difficulty Paying Gas/Electric Bills: No Difficulty Paying for Meds: No Currently Unemployed: No Education: Associate Degree Difficulty w/ Childcare or Family Care: No Living arrangements: with family 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emale Spiritual care concerns: No Meds Home Medications and Allergies Home Medications Medication Instructions Recorded Confirmed Type omeprazole 40 mg capsule,delayed 40 mg PO DAILY #90 caps 02/18/23 03/26/23 Rx release sertraline 50 mg tablet 50 mg PO DAILY #90 tabs 02/18/23 03/26/23 Rx albuterol sulfate 90 mcg/actuation 2 puff inhalation Q4-6H PRN 03/18/23 03/26/23 Rx aerosol inhaler (ProAir HFA) shortness of breath or wheezing #8.5 grams fluticasone 250 mcg-salmeterol 50 1 inh inhalation BID #60 ea 03/18/23 03/26/23 Rx mcg/dose blistr powdr for inhalation (Advair Diskus) Allergies Allergy/AdvReac Type Severity Reaction Status Date / Time Sulfa (Sulfonamide Allergy Mild Hives Verified 03/26/23 09:25 Antibiotics) trimethoprim Allergy Unknown HIVES, Verified 03/26/23 09:25 RASH,ITCHEY latex Allergy Hives Verified 03/26/23 09:25 Vital Signs Vital Signs - 24 hr 03/26/23 09:27 Temperature 97.9 F Pulse Rate 68 Respiratory Rate 16 Blood Pressure 141/78 H Pulse Oximetry 100 Oxygen Delivery Room Air Exam Narrative: Physical exam reveals patient to be alert. Vital signs stable. HEENT exam is unremarkable. Patient is anicteric. Lungs are clear to auscultation and percussion. Heart is without murmur or extra
[2023-03-26 10:33] VITALS: BP 106/91; PULSE 71; RESP 18; O2SAT 100
--- NOTE | 2023-03-26 10:41 | WPDANESPN ---
Anes - Prog Note Post-Op Date/Time: 03/26/23 10:41 Cardiovascular status: normal Respiratory status: normal Airway patency: baseline Mental status: baseline Post-Op hydration status: normal Vital Signs: Last Vital Signs Temp 36.6 C 03/26/23 09:27 Pulse 71 03/26/23 10:33 Resp 18 03/26/23 10:33 BP 106/91 H 03/26/23 10:33 Pulse Ox 100 03/26/23 10:33 O2 Del Method Room Air 03/26/23 10:33 Pain Score (VAS): 0/10 I/O: Intake & Output 03/25/23 03/26/23 03/26/23 23:59 07:59 15:59 Intake Total 300 Balance 300 Patient Feedback: Patient satisfied with anesthetic care.
[2023-03-26 10:43] VITALS: BP 124/71; PULSE 64; RESP 18; O2SAT 100
== END 2023-03-26 11:00 | disposition home or self-care (01) ==
PROVIDERS: PCP Internal Medicine; Visit Provider Internal Medicine Gastroenterology
PROC: 0DJ08ZZ Inspection of Upper Intestinal Tract, Via Natural or Artificial Opening Endoscopic (ICD-10-PCS; CPT 43235; principal; 2023-03-26 10:30)
DX: K44.9 Diaphragmatic hernia without obstruction or gangrene (principal)
CPT/HCPCS: 43239

== ENCOUNTER 2023-07-02 14:01 | Outpatient (CLI) | payer OTHER, SELFPAY | END 2023-07-02 14:02 | disposition home or self-care (01) | PROVIDERS: PCP Internal Medicine; Visit Provider Surgery | DX: K44.9 Diaphragmatic hernia without obstruction or gangrene (principal); Z01.818 Encounter for other preprocedural examination | CPT/HCPCS: 36415; 86850; 86900; 86901 ==

== ENCOUNTER 2023-07-09 11:12 | Observation (INO) | payer OTHER, SELFPAY ==
[2023-07-02 11:07] VITALS: BMI 27.0
--- NOTE | 2023-07-02 11:11 | PC.NURSE ---
Report to the Outpatient Waiting Room, entrance under the green pavilion located off [facility], at time 10:00 on date 07/08/23. Planned Procedure Time: 12:00. Time changes happen often and if your time is changed the preop area will call you the afternoon before. - You and your visitor will be asked to self-screen and do not enter if you have any COVID symptoms. - A mask is optional within the hospital at this time. Patients may have clear liquids (water, carbonated beverages, clear teas, apple juice) until 3 hours prior to surgery with a maximum of 20 ounces. - No food from midnight until time of surgery Take the following medications with a SIP of water the morning of surgery: SERTRALINE, INHALER IF NEEDED DO NOT STOP ANY OF YOUR OTHER PRESCRIPTION MEDICATIONS PRIOR TO SURGERY ?EXCEPT THE FOLLOWING Medications to discontinue per physician: N/A Date to take last dose: N/A Please no make-up, nail guamanian, hairspray, perfume, deodorant, or body powder the day of surgery. No jewelry (including any body piercings) or valuables the day of surgery, leave them at home. Please take a shower or bath the night before, or the morning of, surgery with an antibacterial soap (HIBICLENS). Wear comfortable, loose fitting clothing. - Jewelry must be removed prior to entering the operating room. Rings and piercings that are not removed may be cut off. - The hospital will not accept responsibility for valuables. - Please leave all valuables, including medications, at home the day of surgery. If you are going home after surgery, a licensed delivery motorcycle driver must drive you home. - NO public transportation without another adult if you receive anesthesia. - We recommend that an adult stay with you for 24 hours following discharge. - We also recommend that you do not drive, make important decision, drink alcoholic beverages, or take any drugs that were not prescribed by your health care provider for at least 24 hours after your discharge time. Follow any additional instructions given to you from your surgeon. If you or anyone in your household have experienced Covid symptoms in the past week, please notify your surgeon or the nurse liaison at the phone number below for possible testing. Telephone instructions given to PT - MAGUE RAMIREZ and asked if any additional questions and then verbalized understanding. Patient advised to call surgeon office or pre surgery nurse liaison [phone] if any additional questions.
[2023-07-08] VITALS (8 sets, daily range): BP systolic 136–146; BP diastolic 72–90; PULSE 82–98; RESP 14–18; TEMP 35.9–36.9; O2SAT 95–100; BMI 27.8
[2023-07-08] MEDS: LACTATED RINGERS 1,000 ML 30 ML IV CONT ×2 (10:20→15:56)
[2023-07-08] MEDS: ACETAMINOPHEN 500 MG TABLET 1000 MG PO ×3 (10:24→23:50)
[2023-07-08] MEDS: KETOROLAC 15 MG/ML VIAL (*BKC) IV PUSH (10:24)
--- NOTE | 2023-07-08 10:59 | WPDANESEPPF ---
Anes - Initial Pre Proc Eval Procedure: Operation Date: 07/08/23 12:00 Proposed Procedures p Laparoscopic Hiatal Hernia Repair, Davinci Assisted - Luis Enrique Blue DO Date/Time: 07/08/23 10:59 Surgeon: Luis Enrique Blue DO Pre Op Diagnosis: paraesophageal hernia Patient Data Age: 52 Gender: F Height: 1.66 m Weight: 76.9 kg Last Vital Signs Temp 36.3 C L 07/08/23 10:08 Pulse 82 07/08/23 10:08 Resp 16 07/08/23 10:08 BP 146/78 H 07/08/23 10:08 Pulse Ox 99 07/08/23 10:08 O2 Del Method Room Air 07/08/23 10:08 Allergies Allergy/AdvReac Type Severity Reaction Status Date / Time Sulfa (Sulfonamide Allergy Mild Hives Verified 07/08/23 10:43 Antibiotics) trimethoprim Allergy Unknown HIVES, Verified 07/08/23 10:43 RASH,ITCHEY latex Allergy Hives Verified 07/08/23 10:43 Home Medications Medication Instructions Recorded Confirmed Type omeprazole 40 mg capsule,delayed 40 mg PO DAILY #90 caps 02/18/23 07/08/23 Rx release sertraline 50 mg tablet 50 mg PO DAILY #90 tabs 02/18/23 07/08/23 Rx albuterol sulfate 90 mcg/actuation 2 puff inhalation Q4-6H PRN 03/18/23 07/08/23 Rx aerosol inhaler (ProAir HFA) shortness of breath or wheezing #8.5 grams Patient hx anesthesia problems: none Family hx anesthesia problems: none Results Review: All pre-operative results and documents have been reviewed as part of the pre-operative evaluation. [facility] Past Medical History Medical History Anemia Asthma Overweight (BMI 25.0-29.9) Paraesophageal hernia Surgical History Surgical History H/O laparoscopy H/O shoulder surgery H/O: hysterectomy History of incisional hernia repair Open ventral incisional hernia repair w/ mesh on 09/10/22. Hx of appendectomy Hx of breast implants, bilateral Family History Family History Sibling Family history of thyroid disease Hypertension Family history of hypothyroidism Patient's brother is Mother Family history of ulcerative colitis Acute myocardial infarction Diabetes mellitus Father Family history of diabetes mellitus in first degree relative Acute myocardial infarction Diabetes mellitus Liver cancer Other Family history of alcoholism Family history of cardiovascular disease Social History Social History Smoking status: Never smoker Second hand tobacco smoke exposure: No Alcohol intake: current Drinks per week: 7 Alcohol use details: 1 GLASS RED WINE PER NIGHT Substance use: never Substance use type: does not use Lack of Transportation: No Lack of Food: Never True Current Housing: I Have Housing Concerned About Future Housing: No Difficulty Paying Gas/Electric Bills: No Difficulty Paying for Meds: No Currently Unemployed: No Education: Associate Degree Difficulty w/ Childcare or Family Care: No Living arrangements: with family 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 Informed Consent: The patient's anesthetic plan and its attendant risks and benefits were discussed with the patient/family/POA. Questions were solici
--- NOTE | 2023-07-08 12:36 | WPDHPUPDATE1 ---
History and Physical Update Update Date/Time: 07/08/23 12:36 History and Physical has been reviewed, including an updated exam of the patient. There are NO changes in the patient's condition. Risks, benefits, and alternatives have been discussed and questions answered. Patient agrees to proceed with procedure.
[2023-07-08] MEDS: ceFAZolin 2 GM/D5W 50 ML 2 GM/50 ML BAG IVPB (12:57)
[2023-07-08] MEDS: BUPIVACAINE/EPINEPHRINE 0.5% 30 ML VIAL INFILTRATE (13:59)
--- NOTE | 2023-07-08 15:54 | W.PM.PROC2 ---
Procedure Note - Detailed Date of Procedure 07/08/23 Pre-op Diagnosis paraesophageal hernia Post-op Diagnosis Same Procedure Performed Robotic assisted laparoscopic paraesophageal hernia repair with 270 degree fundoplication Surgeon Luis Enrique Blue, DO Anesthesia General and Local (0.5% bupivicaine with epi) Indications This is a 52-year-old woman who presented with refractory GERD and a symptomatic hiatal hernia. She has a previous history EGD which showed a large hiatal hernia. She has also had multiple CTs which have demonstrated a large hiatal hernia containing the upper portion of her stomach. She underwent esophageal manometry which showed normal esophageal peristalsis. She could not tolerate stopping the PPI long enough to undergo esophageal pH testing. Discussions were made with the patient about treatment options and decision was made to proceed with robotic assisted laparoscopic paraesophageal hernia repair with fundoplication. Findings Laparoscopic paraesophageal hernia repair was performed. The patient was found to have a large paraesophageal hernia containing the upper portion of the stomach. The hernia sac and stomach were reduced from within the mediastinum and the esophageal attachments were taken down enough to allow for adequate length within the abdominal cavity. The hernia sac was excised and sent to the lab for pathology. The hiatal hernia repair was performed using 2 0 V lock permanent running suture. I then chose to perform a 270 degree toupee fundoplication. No other intra-abdominal abnormalities were noted. Description of Procedure Procedure as well as risks, benefits, and alternatives were discussed with the patient. Written consent was obtained and placed in chart prior to procedure. Patient was brought back to surgical suite. She was placed supine on operating table. Time-out was done to confirm patient and procedure. She was then intubated by the anesthesia department. Her abdomen was prepped and draped in sterile fashion using chlorhexidine prep. 0.5% bupivacaine with epinephrine was infiltrated locally around each area for port placement. An 8 mm incision was made in the left upper quadrant 2 cm inferior to the costal margin in the mid clavicular line. A 5 mm Optiview trocar was then advanced through the abdominal layers under direct visualization. Once inside the abdominal cavity, carbon dioxide insufflation was used to create a pneumoperitoneum. The camera was inserted in the abdomen was inspected. No immediate abnormalities were identified. Another 8 mm camera port was placed about 15 cm inferior to the xiphoid just to the left of midline under direct visualization. An 8 mm port was placed in the anterior axillary line on the left upper quadrant at about the same transverse plane as the camera port. An 8 mm port was placed in the right upper quadrant and another 8 mm AirSeal assist port was placed in right lower quadrant just to the right of the umbilicus. A 5 mm incision was made in the subxiphoid region and the Rey liver retractor was inserted through this incision into the abdominal cavity to lift up the left lobe of the liver. This was secured in place to the bed of the table. The patient was then placed in 30? reverse Trendelenburg. The robotic arms were secured to the ports and the robotic camera and instruments were inserted. A force bipolar grasper was placed in the right upper quadrant port. The vessel sealer was placed in the midclavicular left upper quadrant port and a Cadiere grasper was placed in the anterior axillary line left upper quadrant port. I then moved over to the robotic console took control of the camera and instruments. A careful thorough exam was performed throughout the abdomen. The stomach was then reduced from within the hiatal hernia. The gastrohepatic ligament was taken down medially using the vessel sealer to identify the right juanita. Peritoneum along the medial side
[2023-07-08] MEDS: fentaNYL CITRATE INJ (*CRX) 100 MCG/2 ML VIAL 25 MCG IV PUSH ×8 (16:11→16:40)
--- NOTE | 2023-07-08 17:08 | ADMGEN ---
This patient, Georgina Cardenas, was admitted to Medical Room 348-01. Patient/family oriented to hospital policies and general routines including ID bracelet, bed and alarms, visiting hours, pain management, procedures, bathroom and other care routines, personal items, smoking policy, room service/diet, and visiting hours. Information on how to activate the Rapid Response Team has been discussed. Patient/Family are encouraged to report perceived risks to care and to ask questions if they do not understand what they are told or what they should do.
[2023-07-08] MEDS: oxyCODONE HCL (*CRX) 2.5 MG TAB IR PO (17:17)
[2023-07-08] MEDS: ONDANSETRON INJ 4 MG/2 ML VIAL IV PUSH (18:18)
[2023-07-08] MEDS: MORPHINE SULFATE (*CRX) 4 MG/ML INJ IV PUSH (19:54)
[2023-07-09] VITALS (16 sets, daily range): BP systolic 122–149; BP diastolic 68–88; PULSE 67–88; RESP 14–18; TEMP 36.1–37; O2SAT 95–100
--- NOTE | ~2023-07-09 | CT_ITS ---
EXAMINATION: CT abdomen wo/w con DATE: 07/09/2023 23:47 INDICATION: Upper abdominal pain, swelling TECHNIQUE: Computed tomography (CT) of the abdomen was performed without and subsequently with 100 CC Omnipaque 350 intravenous contrast. Automated exposure control and iterative reconstruction techniqu e were employed. Exam dose: 1237.86 mGy-cm total exam DLP. COMPARISON: 10/30/2022 CT abdomen. FINDINGS: Status post bilateral augmentation mammoplasty. Bibasilar infiltrate and discoid atelectasis, primarily involving the lower lobes and lingula. Pneumomediastinum. No pneumothorax is evident. There is mild subcutaneous emphysema of the left and right anterior abdominal wall. Pneumomediastinum is noted along the distal esophagus in addition to fluid surrounding the distal eso phagus and esophagogastric area. There is soft tissue thickening at the wall of the gastric fundus. U pper gastric mass lesion must be considered. Distal esophageal proximal gastric perforation is sugges olaf. Small left pleural effusion. Diffuse hepatic steatosis. No hepatic, splenic, pancreatic, and adrenal or renal space-occupying mass lesion is evident. Normal caliber of the abdominal aorta. No intraperitoneal or retroperitoneal adenopathy is noted. IMPRESSION: Prominent soft tissue thickening at the gastric fundus and fluid surrounding the distal esophagus and proximal stomach, with mild left pleural effusion. There is pneumomediastinum, suggesti ng hollow viscus rupture in the absence of evidence of pneumothorax. Gastric neoplasm with perforation must be considered. Infiltrate and/atelectasis at the lung bases, particularly involving the lower lobes Hepatic steatosis Reviewed, dictated and finalized at [facility]. Reviewed, dictated and finalized at [facility]. IMPRESSION: Prominent soft tissue thickening at the gastric fundus and fluid s urrounding the distal esophagus and proximal stomach, with mild left pleural ef fusion. There is pneumomediastinum, suggesting hollow viscus rupture in the abs ence of evidence of pneumothorax. Gastric neoplasm with perforation must be considered. Infiltrate and/atelectasis at the lung bases, particularly involving the lower lobes Hepatic steatosis
--- NOTE | ~2023-07-09 | XR_ITS ---
EXAMINATION: XR esophogram water soluble DATE: 07/10/2023 10:01 INDICATION: Vomiting post hiatal hernia repair TECHNIQUE: The patient drank water-soluble contrast. Fluoroscopic spot radiographs of the hypopharynx and esophagus were obtained. A total of 559 images were recorded. Fluoroscopy exposure time was 1.0 minutes. COMPARISON: None. FINDINGS: The esophagus are normal without mass or stricture. Esophageal motility is normal. There is no hiatal hernia. Abnormal contour to the gastric cardia consistent with a likely Erin fundoplicat ion. No significant stricture at the site of the wrap with lumen measuring up to 9 x 6 mm in orthogon al diameter and with no delay of passage of contrast from the esophagus into the stomach. Stomach chelsi ears otherwise unremarkable with similar rapid passage of contrast into the small bowel. The duodenum and visualized proximal loops of jejunum appear normal. No gastroesophageal reflux observed however the stomach is not fully distended and provocative maneuvers for not performed due to the recent surg elaine. IMPRESSION: 1. No significant stricture at the site of a likely Erin fundoplication. Reviewed, dictated and finalized at location A.
[2023-07-09] MEDS: ACETAMINOPHEN 500 MG TABLET 1000 MG PO ×4 (05:24→22:57)
[2023-07-09 05:56] LABS: Hematocrit 22.1 % (37.0-47.0); Mean Corpuscular HGB Conc 26.7 g/dl (32-36); Mean Corpuscular Hemoglobin 18.8 pg (26-34); Mean Corpuscular Volume 70.6 fl (80-100); Mean Platelet Volume 10.8 fl (7.4-10.4); Platelet Count Result 202 k/mm3 (150-375); Red Blood Count 3.13 M/mm3 (4.2-5.4); Red Cell Distribution Width 18.6 % (11.5-14.5)
[2023-07-09 06:11] LABS: Hemoglobin 5.9 g/dL (12.0-15.0)
[2023-07-09 06:15] LABS: Anion Gap 7 mmol/L (8-16); Blood Urea Nitrogen 12 mg/dL (7-17); Calcium 9.1 mg/dL (8.4-10.2); Carbon Dioxide 26 mmol/L (22-30); Chloride 102 mmol/L (98-107); Estimated CRCL calculation 83 ml/min; Estimated Glomerular Filt Rate > 60; Glucose 105 mg/dL (65-110); Potassium 4.2 mmol/L (3.4-5.0); Sodium 135 mmol/L (137-145)
--- NOTE | 2023-07-09 06:34 | PC.NURSE ---
RN received critical lab results for Hgb. Information was relayed to MD thru lithopone charger and instructions were given to companion.
[2023-07-09] MEDS: SERTRALINE HCL 50 MG TABLET PO (08:46)
--- NOTE | 2023-07-09 08:53 | WPDANESPN ---
Anes - Prog Note Post-Op Date/Time: 07/09/23 08:53 Cardiovascular status: normal Respiratory status: normal Airway patency: baseline Mental status: baseline Post-Op hydration status: normal Vital Signs: Last Vital Signs Temp 36.1 C L 07/09/23 06:00 Pulse 72 07/09/23 06:00 Resp 18 07/09/23 06:00 BP 129/68 07/09/23 06:00 Pulse Ox 100 07/09/23 06:00 O2 Del Method Room Air 07/08/23 16:45 O2 Flow Rate 8 07/08/23 16:10 Pain Score (VAS): 10 I/O: Intake & Output 07/08/23 07/09/23 07/09/23 23:59 07:59 15:59 Intake Total 540 340 Balance 540 340 Laboratory Tests 07/09/23 05:37 07/09/23 05:37 07/09/23 05:37 WBC 7.0 RBC 3.13 L Hgb 5.9 L* Hct 22.1 L MCV 70.6 L MCH 18.8 L MCHC 26.7 L RDW 18.6 H Plt Count 202 MPV 10.8 H Sodium 135 L Potassium 4.2 Chloride 102 Carbon Dioxide 26 Anion Gap 7 L BUN 12 Creatinine 0.70 Estim Creat Clear Calc 83 Estimated GFR > 60 Glucose 105 Calcium 9.1 Post-procedural complaints: none Patient Feedback: Patient satisfied with anesthetic care.
[2023-07-09 09:09] LABS: Hematocrit 21.9 % (37.0-47.0)
[2023-07-09 09:11] LABS: Hemoglobin 5.8 g/dL (12.0-15.0)
[2023-07-09] MEDS: SODIUM CHLORIDE 0.9% IV 250 ML 30 ML IV CONT (11:25)
--- NOTE | 2023-07-09 13:41 | PM.PNGS ---
Progress Note: A&P Assessment and Plan (1) Paraesophageal hernia: Code(s): K44.9 - Diaphragmatic hernia without obstruction or gangrene Status: Acute Assessment and Plan: Doing well on postop day 1. Vitals remain stable. Her morning labs showed a hemoglobin of 5.9. She does not appear to have any signs of acute blood loss that would explain this. Patient does have some chronic anemia but has not had her labs redrawn recently. Will transfuse 2 units packed red blood cells today. Will also check iron studies. Might need to consult hospitalist or senior product consultant for further workup. (2) Anemia: Qualifiers: Anemia type: iron deficiency Iron deficiency anemia type: unspecified iron deficiency Qualified Code(s): D50.9 - Iron deficiency anemia, unspecified Code(s): D64.9 - Anemia, unspecified Status: Acute Subjective Subjective Date/Time Seen: 07/09/23 13:41 Interval history: Patient feeling well this morning. Tolerating clear liquids. Pain controlled. Denies any lightheadedness. Patient denies any blood in her stool. She denies any hematemesis. She denies any vaginal bleeding. Exam GI: Inspection: non-distended and incision (Intact with glue) GI Palp: Yes Soft to palpation, Yes Tenderness to palpation present (GI) (Incisional) and No Guarding due to palpation present (GI) Objective Data Vital Signs Vital Signs: Vital Signs - 24 hr 07/08/23 15:56 07/08/23 16:10 07/08/23 16:25 Temperature 36.6 C 36.4 C L Pulse Rate 98 91 87 Respiratory Rate 16 18 14 Blood Pressure 140/76 143/78 H 137/72 Pulse Oximetry 100 100 95 Oxygen Delivery Simple Face Mask Simple Face Mask Room Air Oxygen Flow Rate 8 8 07/08/23 16:40 07/08/23 16:45 07/08/23 18:35 Temperature 36.9 C Pulse Rate 90 93 91 Respiratory Rate 16 14 16 Blood Pressure 136/79 138/73 140/76 Pulse Oximetry 96 95 98 Oxygen Delivery Room Air Room Air Oxygen Flow Rate 07/08/23 20:00 07/09/23 00:00 07/09/23 06:00 Temperature 35.9 C L 36.1 C L 36.1 C L Pulse Rate 89 88 72 Respiratory Rate 14 14 18 Blood Pressure 138/90 126/73 129/68 Pulse Oximetry 98 98 100 Oxygen Delivery Oxygen Flow Rate 07/09/23 08:00 07/09/23 11:23 07/09/23 11:30 Temperature 36.6 C 36.6 C Pulse Rate 73 73 Respiratory Rate 16 16 Blood Pressure 149/83 H 149/83 H Pulse Oximetry 98 98 Oxygen Delivery Room Air Oxygen Flow Rate 07/09/23 11:46 07/09/23 12:05 07/09/23 13:05 Temperature 36.6 C 36.7 C 37.0 C Pulse Rate 73 69 73 Respiratory Rate 16 16 16 Blood Pressure 149/83 H 122/75 146/80 H Pulse Oximetry 98 97 100 Oxygen Delivery Oxygen Flow Rate Intake/Output Intake/Output: Intake & Output 07/06/23 07/07/23 07/08/23 07/09/23 23:59 23:59 23:59 23:59 Intake Total 540 580 Balance 540 580 Meds/Results Medications: Active Medications Generic Name Dose Route Start Last Admin Trade Name Freq PRN Reason Stop Dose Admin Acetaminophen 1,000 mg 07/08/23 16:50 07/09/23 10:44 Acetaminophen 500 Mg Tablet PO 1,000 mg Q6H ROBERTO Administration Albuterol 2 puff 07/08/23 16:50 Albuterol Sulfate (*Sp) Aerosol 1 Puff INHALATION Q4-6H PRN shortness of breath or wheezing Enoxaparin Sodium 40 mg 07/09/23 09:00 07/09/23 11:24 Enoxaparin 40 Mg/0.4 Ml Syringe SUB-Q Not Given DAILY ROBERTO Sodium Chloride 250 mls @ 30 mls/hr 07/09/23 09:40 07/09/23 11:25 Normal Saline Iv IV CONT 07/09/23 17:59 30 mls/hr .Q8H20M STA Administration Morphine Sulfate 2 mg 07/08/23 16:50 Morphine Sulfate (*Crx) 2 Mg/Ml Inj IV PUSH Q2H PRN Pain Rated 4-6 Morphine Sulfate 4 mg 07/08/23 16:50 07/08/23 19:54 Morphine Sulfate (*Crx) 4 Mg/Ml Inj IV PUSH 4 mg Q2H PRN Administration Pain Rated 7-10 Ondansetron HCl 4 mg 07/08/23 16:50 09/20/23 18:18 Ondansetron Inj 4 Mg/2 Ml Vial IV PUSH 4 mg Q4H PRN Administration Nausea And Vomiting Oxy
[2023-07-09] MEDS: MORPHINE SULFATE (*CRX) 2 MG/ML INJ IV PUSH ×2 (14:07→18:00)
[2023-07-09] MEDS: ONDANSETRON INJ 4 MG/2 ML VIAL IV PUSH (17:57)
[2023-07-09 20:04] LABS: Hematocrit 28.5 % (37.0-47.0); Hemoglobin 8.3 g/dL (12.0-15.0)
--- NOTE | 2023-07-09 21:37 | PM.IMHP ---
H&P: HPI History of Present Illness Date/Time: 07/09/23 21:37 Chief Complaint: Post-Op Narrative: 52 y/o F presented here for laproscopic hiatal hernia repair (07/08) [facility] Past Medical History Medical History Anemia Asthma Overweight (BMI 25.0-29.9) Paraesophageal hernia Surgical History Surgical History H/O laparoscopy H/O shoulder surgery H/O: hysterectomy History of incisional hernia repair Open ventral incisional hernia repair w/ mesh on 09/10/22. Hx of appendectomy Hx of breast implants, bilateral Family History Family History Sibling Family history of thyroid disease Hypertension Family history of hypothyroidism Patient's brother is Mother Family history of ulcerative colitis Acute myocardial infarction Diabetes mellitus Father Family history of diabetes mellitus in first degree relative Acute myocardial infarction Diabetes mellitus Liver cancer Other Family history of alcoholism Family history of cardiovascular disease Social History Social History Smoking status: Never smoker Second hand tobacco smoke exposure: No Alcohol intake: current Drinks per week: 7 Alcohol use details: 1 GLASS RED WINE PER NIGHT Substance use: never Substance use type: does not use Lack of Transportation: No Lack of Food: Never True Current Housing: I Have Housing Concerned About Future Housing: No Difficulty Paying Gas/Electric Bills: No Difficulty Paying for Meds: No Currently Unemployed: No Education: Associate Degree Difficulty w/ Childcare or Family Care: No Living arrangements: with family 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emale Spiritual care concerns: No Meds Home Medications and Allergies Home Medications Medication Instructions Recorded Confirmed Type omeprazole 40 mg capsule,delayed 40 mg PO DAILY #90 caps 02/18/23 07/08/23 Rx release sertraline 50 mg tablet 50 mg PO DAILY #90 tabs 02/18/23 07/08/23 Rx albuterol sulfate 90 mcg/actuation 2 puff inhalation Q4-6H PRN 03/18/23 07/08/23 Rx aerosol inhaler (ProAir HFA) shortness of breath or wheezing #8.5 grams Allergies Allergy/AdvReac Type Severity Reaction Status Date / Time Sulfa (Sulfonamide Allergy Mild Hives Verified 07/08/23 10:43 Antibiotics) trimethoprim Allergy Unknown HIVES, Verified 07/08/23 10:43 RASH,ITCHEY latex Allergy Hives Verified 07/08/23 10:43 Vital Signs Vital Signs - 24 hr 07/09/23 00:00 07/09/23 06:00 07/09/23 08:00 Temperature 96.9 F L 97 F L Pulse Rate 88 72 Respiratory Rate 14 18 Blood Pressure 126/73 129/68 Pulse Oximetry 98 100 Oxygen Delivery Room Air 07/09/23 11:23 07/09/23 11:30 07/09/23 11:46 Temperature 97.9 F 97.9 F 97.9 F Pulse Rate 73 73 73 Respiratory Rate 16 16 16 Blood Pressure 149/83 H 149/83 H 149/83 H Pulse Oximetry 98 98 98 Oxygen Delivery 07/09/23 12:05 07/09/23 13:05 07/09/23 14:05 Temperature 98.1 F 98.6 F 98.5 F Pulse Rate 69 73 84 Respiratory Rate 16 16 18 Blood Pressure 122/75 146/80 H 145/75 H Pulse Oximetry 97 100 98 Oxygen Delivery 07/09/23 14:50 07/09/23 15:15 07/09/23 16:19 Temperature 98.2 F 98.2 F 98.2 F Pulse Rate 71 68 73 Respiratory Rate 18 18 18 Blood Pressure 124/78 131/76 132/71 Pulse Oximetry 98 98 95 Oxygen Delivery 07/09/23 16:15 07/09/23 17:11 07/09/23 17:12 Temperature 98.2 F 98.4 F 98.4 F Pulse Rate 73 72 72 Respiratory Rate 18 16 16 Blood Pressure 132/71 144/80 H 144/80 H Pulse Oximetry 95 95 98 Oxygen Delivery 07/09/23 17:15 07/09/23 20:42 Temperature 98.5 F 97.5 F L Pulse Rate 67 67 Respiratory Ra
--- NOTE | 2023-07-09 21:44 | WPDCN ---
Assessment and Plan Assessment and plan (1) Anemia: Qualifiers: Anemia type: iron deficiency Iron deficiency anemia type: unspecified iron deficiency Qualified Code(s): D50.9 - Iron deficiency anemia, unspecified Code(s): D64.9 - Anemia, unspecified Status: Acute (2) Paraesophageal hernia: Code(s): K44.9 - Diaphragmatic hernia without obstruction or gangrene Status: Acute Plan Problem List 1. anemia repeat CBC post transfusion (2 Units) - 8.3. trend in AM. MCV 70.6 iron deficiency workup previously done on 08/07/22. will replete with 300 mg IV QAM x3 days. ferritin 8, repeat TIBC 522, repeat iron 22, repeat 2. hernia repair surgery to follow has not passed BM, see diet - metamucil and docusate/senna PRN @2300 provider called for patient complaint of increasing upper abdominal pain. patient reports nausea/vomiting. exam revealed increased swelling to upper abdomen with +tenderness and guarding. Repeat CBC ordered STAT and Abdominal CT w and wo contrast ordered STAT. Surg (Antonio YATES) called by nursing staff: CT verbally read off to surgeon and they added Q6 IBU and encouraged ambulation and they would reevaluate in the AM. CT of Abdomen/Pelvis Impression 1. Prominent soft tissue thickening at the gastric fundus and fluid surrounding the distal esophagus and proximal stomach, with mild left pleural effusion. There is pneumomediastinum, suggesting hollow viscus rupture in the absence of evidence of pneumothorax. 2. Gastric neoplasm with perforation must be considered. 3. Infiltrate and/atelectasis at the lung bases, particularly involving the lower lobes 4. Hepatic steatosis Chronic Conditions - home sertraline continued. Diet: Full Liquid GI Prophylaxis: DVT Prophylaxis: SCDs, Enoxaparin held Lines: pIV Code Status: full;code HPI Data of Consult Date/Time: 07/09/23 21:44 Requesting Physician: Luis Enrique Blue DO Primary Care Provider: Dann Coello DO Consult Narrative Reason for consult: Anemia Narrative: Georgina Cardenas is a 52 year old female that presented here for laparoscopic hiatal hernia repair (07/08) with PMH of hernia and anemia. Patient is postop x1 day. No immediate complications after the surgery and pain under control. Postop labs showed anemia - Hgb of 5.9. Patient's lowest hgb to her knowledge was 8.9. she endorses more fatigue and shortness of breath direct activity over the last month. Also endorsing intermittently dark and foul-smelling bowel movements in the last month. She endorses a pressing feeling on ribcage, but no burning in throat, dry cough, increased belching, or acid-reflux. Increase in stress/grief due to recent loss of father and attributed symptoms to grief. Last colonoscopy 1 year ago - WNL. High resolution esophageal motility study done on 05/06/23. Review of Systems Review of Systems: All systems reviewed & are unremarkable except as noted in HPI and below PMFSH Past Medical History Medical History Anemia Asthma Overweight (BMI 25.0-29.9) Paraesophageal hernia Surgical History Surgical History H/O laparoscopy H/O shoulder surgery H/O: hysterectomy History of incisional hernia repair Open ventral incisional hernia repair w/ mesh on 09/10/22. Hx of appendectomy Hx of breast implants, bilateral Family History Family History Sibling Family history of thyroid disease Hypertension Family history of hypothyroidism Patient's brother is Mother Family history of ulcerative colitis Acute myocardial infarction Diabetes mellitus Father Family history of diabetes mellitus in first degree relative Acute myocardial infarction Diabetes mellitus Liver cancer Other Family history of alcoholism Family h
[2023-07-09] MEDS: MORPHINE SULFATE (*CRX) 4 MG/ML INJ IV PUSH (23:08)
[2023-07-09 23:31] LABS: Hematocrit 29.5 % (37.0-47.0); Hemoglobin 8.5 g/dL (12.0-15.0); Mean Corpuscular HGB Conc 28.8 g/dl (32-36); Mean Corpuscular Hemoglobin 21.5 pg (26-34); Mean Corpuscular Volume 74.7 fl (80-100); Mean Platelet Volume 10.6 fl (7.4-10.4); Platelet Count Result 186 k/mm3 (150-375); Red Blood Count 3.95 M/mm3 (4.2-5.4); Red Cell Distribution Width 19.5 % (11.5-14.5); White Blood Count 6.2 K/mm3 (4.5-10.0)
[2023-07-10 01:00] LABS: Iron 39 ug/dL (37-170)
[2023-07-10 01:09] LABS: Percent Iron Saturation 7 % (20-50)
[2023-07-10] MEDS: IBUPROFEN IV 800 MG/200 ML 800 MG/200 ML BAG 400 MG IVPB ×4 (01:30→18:07)
[2023-07-10 01:36] LABS: Ferritin 7.02 ng/mL (11.1-264)
[2023-07-10] MEDS: LACTATED RINGERS 1,000 ML 500 ML IV CONT (01:50)
[2023-07-10] MEDS: ACETAMINOPHEN 500 MG TABLET 1000 MG PO ×4 (05:12→22:57)
[2023-07-10 06:00] VITALS: BP 146/74; PULSE 56; RESP 18; TEMP 36.1; O2SAT 96
[2023-07-10 06:14] LABS: Hematocrit 26.1 % (37.0-47.0); Hemoglobin 7.5 g/dL (12.0-15.0); Mean Corpuscular HGB Conc 28.7 g/dl (32-36); Mean Corpuscular Hemoglobin 21.6 pg (26-34); Mean Corpuscular Volume 75.2 fl (80-100); Mean Platelet Volume 10.1 fl (7.4-10.4); Platelet Count Result 149 k/mm3 (150-375); Red Blood Count 3.47 M/mm3 (4.2-5.4); Red Cell Distribution Width 19.6 % (11.5-14.5); White Blood Count 5.3 K/mm3 (4.5-10.0)
[2023-07-10 06:31] LABS: Anion Gap 6 mmol/L (8-16); Blood Urea Nitrogen 10 mg/dL (7-17); Calcium 8.5 mg/dL (8.4-10.2); Carbon Dioxide 25 mmol/L (22-30); Chloride 105 mmol/L (98-107); Estimated CRCL calculation 83 ml/min; Estimated Glomerular Filt Rate > 60; Glucose 94 mg/dL (65-110); Potassium 3.6 mmol/L (3.4-5.0); Sodium 136 mmol/L (137-145)
[2023-07-10] MEDS: oxyCODONE HCL (*CRX) 2.5 MG TAB IR PO (08:27)
[2023-07-10] MEDS: SERTRALINE HCL 50 MG TABLET PO (08:28)
--- NOTE | 2023-07-10 09:45 | PM.IMPN ---
Progress Note: A&P Assessment and Plan (1) Anemia: Qualifiers: Anemia type: iron deficiency Iron deficiency anemia type: unspecified iron deficiency Qualified Code(s): D50.9 - Iron deficiency anemia, unspecified Code(s): D64.9 - Anemia, unspecified Status: Acute Assessment and Plan: Hemoglobin postoperatively was 5.8. Labs prior to that were obtained in August of 2022 and her hemoglobin was 8.3 at that time. She received 2 units of packed red blood cells after surgery. Her hemoglobin responded to 8.5. Today hemoglobin is 7.5 and a repeat at noon was stable again at 7.5. She is receiving IV iron today and tomorrow. She will need to discharge home on ferrous sulfate 325 mg p.o. b.i.d. Iron panel was considerably low and that was even after 2 units of PRBCs No overt bleeding noted at this time. At on folic acid and vitamin B12 for a.m. testing. (2) Paraesophageal hernia: Code(s): K44.9 - Diaphragmatic hernia without obstruction or gangrene Status: Acute Assessment and Plan: Postop day 1 yelitza with General surgery Pain control, DVT prophylaxis, and diet deferred to surgery. Hemodynamically she is stable and okay to discharge from hospitalist standpoint with PCP follow-up for her acute on chronic anemia. Thank you for this consultation Subjective Date/time seen: 07/10/23 09:45 Interval history: HPI obtained from chart, Reason for consult: Anemia Narrative: Georgina Cardenas is a 52 year old female that presented here for laparoscopic hiatal hernia repair (07/08) with PMH of hernia and anemia. Patient is postop x1 day.? No immediate complications after the surgery and pain under control.? Postop labs showed anemia - Hgb of 5.9. Patient's lowest hgb to her knowledge was 8.9.? she endorses more fatigue and shortness of breath direct activity over the last month.? Also endorsing intermittently dark and foul-smelling bowel movements in the last month.? She endorses a pressing feeling on ribcage, but no burning in throat, dry cough, increased belching, or acid-reflux. Increase in stress/grief due to recent loss of father and attributed symptoms to grief. Last colonoscopy 1 year ago - WNL. High resolution esophageal motility study done on 05/06/23. Interval history: 07/10 patient is seen walking in room. is at bedside. She appears well even though she had a difficult night with epigastric pain and an episode of vomiting. She states that IV ibuprofen has been helping with her pain. She is anxious to discharge. We discussed her iron deficiency anemia. Repeat hemoglobin today is 7.5 and is stable. Anticipate IV iron infusion tomorrow morning and potentially discharging in the afternoon if cleared by surgery. She will go home on ferrous sulfate 325 mg p.o. b.i.d. I spoke with her about taking her iron with vitamin-C to increase absorption. We reviewed iron rich foods other than meat, which she does not eat. I also room spoke with her about side effects from iron including dark stools and constipation. She has been instructed to take [id number] Colace daily if she finds that the iron constipates her. She will need repeat lab work and follow-up with her primary care for her anemia. Review of Systems Review of Systems: All systems reviewed & are unremarkable except as noted in HPI and below Exam Narrative: General: well appearing, well developed, well nourished, appears stated age. HEENT: normocephalic, atraumatic. Mucous membranes moist. EOMI, PERRLA, bilateral sclera anicteric, no conjunctival injection. Neck supple without JVD, lymphadenopathy, or bruit. Respiratory: clear to auscultation bilaterally. No rales/rhonic/wheezes. Cardiovascular: Regular rate and rhythm, normal S1-S2 upon auscultation. No murmurs, rubs, or clicks. PMI is nondisplaced, capillary re-fill less than 3 second. Abdomen: Soft, flat, no pulsatile masses, non-distended and mildly tender. No rebound,
[2023-07-10] MEDS: PANTOPRAZOLE 40 MG TABLET PO (10:17)
[2023-07-10 12:47] LABS: Hematocrit 26.2 % (37.0-47.0); Hemoglobin 7.5 g/dL (12.0-15.0)
[2023-07-10 14:30] VITALS: BP 146/87; PULSE 58; RESP 18; TEMP 36.6; O2SAT 99
--- NOTE | 2023-07-10 16:11 | PM.PNGS ---
Progress Note: A&P Assessment and Plan (1) Paraesophageal hernia: Code(s): K44.9 - Diaphragmatic hernia without obstruction or gangrene Status: Acute Assessment and Plan: Water soluble contrast esophagram was obtained this morning and there does not appear to be any surgery related complications. Patient restarted on Protonix. Discussed avoiding citrus and tomato foods to limit significant acid irritation. Continue full liquid diet today as tolerated. Possibly home on full liquid diet tomorrow. Discussed remaining full liquid diet for 1 week and then slowly introducing soft regular foods into diet. (2) Anemia: Qualifiers: Anemia type: iron deficiency Iron deficiency anemia type: unspecified iron deficiency Qualified Code(s): D50.9 - Iron deficiency anemia, unspecified Code(s): D64.9 - Anemia, unspecified Status: Acute Assessment and Plan: No sign of intra-abdominal bleeding noted on CT that was obtained last night. She is remaining hemodynamically stable. This appears likely a chronic condition and will most likely require further workup as an outpatient. Continue current inpatient workup per hospitalist. Subjective Subjective Date/Time Seen: 07/10/23 16:11 Interval history: Patient had a difficult night last night. She tolerated a full liquid lunch, but that dinner time she had tomato soup and coffee and began experiencing nausea and vomiting. She then began experiencing worsening upper abdominal pain at that time. A CT was obtained at that time which showed essentially all typical postoperative changes. IV ibuprofen was ordered, and she does feel somewhat better this morning. She denies any persistent nausea or vomiting. Exam GI: Inspection: non-distended and incision (Intact with glue) GI Palp: Yes Soft to palpation and Yes Tenderness to palpation present (GI) (Incisional and left upper quadrant) Objective Data Vital Signs Vital Signs: Vital Signs - 24 hr 07/09/23 16:19 07/09/23 16:15 07/09/23 17:11 Temperature 36.8 C 36.8 C 36.9 C Pulse Rate 73 73 72 Respiratory Rate 18 18 16 Blood Pressure 132/71 132/71 144/80 H Pulse Oximetry 95 95 95 Oxygen Delivery 07/09/23 17:12 07/09/23 17:15 07/09/23 20:42 Temperature 36.9 C 36.9 C 36.4 C L Pulse Rate 72 67 67 Respiratory Rate 16 16 18 Blood Pressure 144/80 H 135/74 126/88 Pulse Oximetry 98 99 97 Oxygen Delivery 07/10/23 06:00 07/10/23 08:27 07/10/23 14:30 Temperature 36.1 C L 36.6 C Pulse Rate 56 L 58 L Respiratory Rate 18 18 Blood Pressure 146/74 H 146/87 H Pulse Oximetry 96 99 Oxygen Delivery Room Air Intake/Output Intake/Output: Intake & Output 07/07/23 07/08/23 07/09/23 07/10/23 23:59 23:59 23:59 23:59 Intake Total 540 1760 1445 Balance 540 1760 1445 Meds/Results Medications: Active Medications Generic Name Dose Route Start Last Admin Trade Name Freq PRN Reason Stop Dose Admin Acetaminophen 1,000 mg 07/08/23 16:50 07/10/23 10:17 Acetaminophen 500 Mg Tablet PO 1,000 mg Q6H ROBERTO Administration Albuterol 2 puff 07/08/23 16:50 Albuterol Sulfate (*Sp) Aerosol 1 Puff INHALATION Q4-6H PRN shortness of breath or wheezing Enoxaparin Sodium 40 mg 07/09/23 09:00 07/09/23 11:24 Enoxaparin 40 Mg/0.4 Ml Syringe SUB-Q Not Given DAILY ROBERTO Iron Sucrose 300 mg/ Sodium 115 mls @ 76.667 mls/hr 07/10/23 09:00 07/10/23 11:47 Chloride IVPB 07/13/23 08:59 Infused QAM ROBERTO Infusion Ibuprofen 800 mg in 200 mls @ 400 mls/hr 07/10/23 00:35 07/10/23 12:51 Caldolor 800 Mg/200 Ml IVPB Infused Q6HR ROBERTO Infusion Morphine Sulfate 2 mg 07/08/23 16:50 07/09/23 18:00 Morphine Sulfate (*Crx) 2 Mg/Ml Inj IV PUSH 2 mg Q2H PRN Administration Pain Rated 4-6 Morphine Sulfate 4 mg 07/08/23 16:50 07/09/23 23:08 Morphine Sulfate (*Crx) 4 Mg/Ml Inj IV PUSH 4 mg Q2H PRN Administration Pain Rated 7-10 Ondans
[2023-07-10 20:38] VITALS: BP 144/87; PULSE 60; RESP 16; TEMP 36.1; O2SAT 100
[2023-07-11] MEDS: IBUPROFEN IV 800 MG/200 ML 800 MG/200 ML BAG 400 MG IVPB ×3 (00:33→11:51)
[2023-07-11] MEDS: ACETAMINOPHEN 500 MG TABLET 1000 MG PO ×2 (04:54→10:12)
[2023-07-11 05:16] LABS: Anion Gap 2 mmol/L (8-16); Blood Urea Nitrogen 9 mg/dL (7-17); Calcium 8.8 mg/dL (8.4-10.2); Carbon Dioxide 30 mmol/L (22-30); Chloride 107 mmol/L (98-107); Estimated CRCL calculation 83 ml/min; Estimated Glomerular Filt Rate > 60; Glucose 87 mg/dL (65-110); Potassium 3.5 mmol/L (3.4-5.0); Sodium 139 mmol/L (137-145)
[2023-07-11 05:17] VITALS: BP 158/77; PULSE 60; RESP 16; TEMP 36.3; O2SAT 99
[2023-07-11 05:17] LABS: Hematocrit 27.8 % (37.0-47.0); Mean Corpuscular HGB Conc 28.8 g/dl (32-36); Mean Corpuscular Hemoglobin 21.9 pg (26-34); Mean Platelet Volume 10.5 fl (7.4-10.4); Platelet Count Result 164 k/mm3 (150-375); Red Blood Count 3.66 M/mm3 (4.2-5.4); Red Cell Distribution Width 20.2 % (11.5-14.5); White Blood Count 3.9 K/mm3 (4.5-10.0)
[2023-07-11] MEDS: SERTRALINE HCL 50 MG TABLET PO (08:36)
[2023-07-11] MEDS: PANTOPRAZOLE 40 MG TABLET PO (08:36)
--- NOTE | 2023-07-11 08:37 | PM.IMPN ---
Progress Note: A&P Assessment and Plan (1) Anemia: Qualifiers: Anemia type: iron deficiency Iron deficiency anemia type: unspecified iron deficiency Qualified Code(s): D50.9 - Iron deficiency anemia, unspecified Code(s): D64.9 - Anemia, unspecified Status: Acute Assessment and Plan: Hemoglobin postoperatively was 5.8. Labs prior to that were obtained in August of 2022 and her hemoglobin was 8.3 at that time. She received 2 units of packed red blood cells after surgery. Her hemoglobin responded to 8.5. Today hemoglobin is 7.5 and a repeat at noon was stable again at 7.5. She is receiving IV iron today and tomorrow. She will need to discharge home on ferrous sulfate 325 mg p.o. b.i.d. Iron panel was considerably low and that was even after 2 units of PRBCs No overt bleeding noted at this time. At on folic acid and vitamin B12 for a.m. testing both normal (2) Paraesophageal hernia: Code(s): K44.9 - Diaphragmatic hernia without obstruction or gangrene Status: Acute Assessment and Plan: Postop day 2 yelitza with General surgery Pain control, DVT prophylaxis, and diet deferred to surgery. Hemodynamically she is stable and okay to discharge from hospitalist standpoint with PCP follow-up for her acute on chronic anemia. Thank you for this consultation Plan Hoping she can d/c today per surgery's discretion Subjective Date/time seen: 07/11/23 08:37 Interval history: HPI obtained from chart, Reason for consult: Anemia Narrative: Georgina Cardenas is a 52 year old female that presented here for laparoscopic hiatal hernia repair (07/08) with PMH of hernia and anemia. Patient is postop x1 day.? No immediate complications after the surgery and pain under control.? Postop labs showed anemia - Hgb of 5.9. Patient's lowest hgb to her knowledge was 8.9.? she endorses more fatigue and shortness of breath direct activity over the last month.? Also endorsing intermittently dark and foul-smelling bowel movements in the last month.? She endorses a pressing feeling on ribcage, but no burning in throat, dry cough, increased belching, or acid-reflux. Increase in stress/grief due to recent loss of father and attributed symptoms to grief. Last colonoscopy 1 year ago - WNL. High resolution esophageal motility study done on 05/06/23. Interval history: 07/10 patient is seen walking in room. is at bedside. She appears well even though she had a difficult night with epigastric pain and an episode of vomiting. She states that IV ibuprofen has been helping with her pain. She is anxious to discharge. We discussed her iron deficiency anemia. Repeat hemoglobin today is 7.5 and is stable. Anticipate IV iron infusion tomorrow morning and potentially discharging in the afternoon if cleared by surgery. She will go home on ferrous sulfate 325 mg p.o. b.i.d. I spoke with her about taking her iron with vitamin-C to increase absorption. We reviewed iron rich foods other than meat, which she does not eat. I also room spoke with her about side effects from iron including dark stools and constipation. She has been instructed to take [id number]-nknnyzs Colace daily if she finds that the iron constipates her. She will need repeat lab work and follow-up with her primary care for her anemia. 07/11-Regina looks great today. She says she had an excellent night and slept the best she has slept in years. She continues to tolerate her full liquid diet without nausea or vomiting. Her abdominal pain is minimal and she has been up and moving around the room independently. She is anxiously awaiting discharge today. Review of Systems Review of Systems: All systems reviewed & are unremarkable except as noted in HPI and below Exam Narrative: General: well appearing, well developed, well nourished, appears stated age. HEENT: normocephalic, atraumatic. Mucous membranes moist. EOMI, PERRLA, bilateral sclera anicteric, no co
--- NOTE | 2023-07-11 12:46 | PM.DS ---
DS: Admitting Diagnosis Discharge Date 07/11/2023 Admitting Diagnosis Paraesophageal hiatal hernia Dysphagia DS: Discharge Diagnosis Discharge Diagnosis (1) Paraesophageal hernia: Code(s): K44.9 - Diaphragmatic hernia without obstruction or gangrene Status: Chronic (2) DOV (iron deficiency anemia): Qualifiers: Iron deficiency anemia type: unspecified iron deficiency Qualified Code(s): D50.9 - Iron deficiency anemia, unspecified Code(s): D50.9 - Iron deficiency anemia, unspecified Status: Chronic DS: Summary Hospital Course Hospital Course: Patient was taken to surgery on 07/08/2023 and laparoscopic toupee fundoplication was performed with robotic technique. The day after surgery, she was noted to have a low H&H of 5.8 and 22.1. She has a history of chronic anemia. She had not had blood count at this institution since August of 2022. There was no clinical evidence of bleeding. She had a CT scan of the abdomen and pelvis on then 07/09/2023 which showed normal postoperative appearance and no evidence of blood or bleeding. She had some epigastric discomfort and emesis in the evening on 07/09/2023. And a softened Gram on 07/10/2023 showed a normal postoperative appearance. Her discomfort and emesis resolved. She was tolerating full liquids well and very comfortable on 07/11/2023. She received 2 units of packed cells on 07/09 2023 and her hemoglobin and hematocrit increased to a 8.5 and 28.5. It remained stable throughout the rest of her hospital stay. She was very comfortable and wanted to take only ibuprofen after discharge. She was discharged on ferrous sulfate 325 mg b.i.d. Status at Discharge Functional status at discharge: independent ambulation Overall status at discharge: patient is progressing back to baseline Time Spent with Patient Time attestation: Total time spent providing and/or coordinating discharge services: Time spent: Less than 30 minutes DS: Data Data Completed and Pending Completed studies during hospitalization: Pending at discharge 07/08/23 15:10 Surgical [PTH] Routine Labs on day of discharge: Labs from last 24 hours 07/11/23 07/10/23 04:45 12:40 WBC 3.9 L RBC 3.66 L Hgb 8.0 L 7.5 L Hct 27.8 L 26.2 L MCV 76.0 L MCH 21.9 L MCHC 28.8 L RDW 20.2 H Plt Count 164 MPV 10.5 H Sodium 139 Potassium 3.5 Chloride 107 Carbon Dioxide 30 Anion Gap 2 L BUN 9 Creatinine 0.70 Estim Creat Clear Calc 83 Estimated GFR > 60 Glucose 87 Calcium 8.8 Vitamin B12 950.0 H Folate 19.0 Discharge Plan Discharge Attending physician on discharge: Luis Enrique Blue Consulting providers: Maurilio Aponte Discharging Clinician: Bryan Alvarez Anticipated Discharge Date/Time: 07/11/23 12:43 Patient Disposition: Home, Self-Care Activity: may shower, no straining and other - see discharge instructions Diet: other - see discharge instructions Wound Care Instructions: other - see discharge instructions Discharge Instructions: Postoperative instructions No lifting greater than 10 lb for the next 2 weeks May ambulate, but no strenuous exercise Continue full liquid diet for 1 week, then may slowly introduce small bite sized solid foods as tolerated Call office for nausea/vomiting, increasing pain, fevers, or other problems with incisions Patient Instructions: Antibiotic Form, Full Liquid Diet (DC) Stand Alone Forms: General Discharge Information Follow-up/Referrals: Luis Enrique Blue, DO [Physician] - Keep Reg. Scheduled Appt. Discharge Medications: New ferrous sulfate 325 mg (65 mg iron) tablet,delayed release (DR/EC) 325 mg PO BID Qty: 60 0RF ibuprofen 600 mg tablet 600 mg PO Q6H PRN (Reason: pain) Qty: 14 0RF Continued albuterol sulfate [ProAir HFA] 90 mcg/actuation HFA aerosol inhaler 2 puff INHALATION Q4-6H PRN (Reason: shortness of breath or wheezing) Qt
== END 2023-07-11 13:20 | disposition home or self-care (01) ==
LOC: ANHSURGERY 11:43 → ANH3MED 07-10 07:25
PROVIDERS: Nurse Practitioner Acute Care; Nurse Practitioner Family; Student in an Organized Health Care Education/Training Program; Admitting Provider Surgery; PCP Internal Medicine; Visit Provider Surgery
PROC: 0DV44ZZ Restriction of Esophagogastric Junction, Percutaneous Endoscopic Approach (ICD-10-PCS; CPT 43280; principal; 2023-07-08 12:00)
DX: K44.9 Diaphragmatic hernia without obstruction or gangrene (principal); D50.9 Iron deficiency anemia, unspecified; J45.909 Unspecified asthma, uncomplicated; Z79.51 Long term (current) use of inhaled steroids
CPT/HCPCS: 43281; S2900; 36415; 36430; 74170; 74220; 80048; 82607; 82728; 82746; 83540; 83550; 85014; 85018; 85027; 86850; 86900; 86901; 86923; 88302; A9270; G0378; J0690; J1100; J1170; J1741; J1756; J1885; J2250; J2270; J2405; J2704; J3010; J7030; J7050; J7120; P9016; Q9967